=== PATIENT | female | born 1955 | race Caucasian/White ===

== ENCOUNTER 2017-05-27 20:06 | Emergency (ER) | payer BC, MEDICARE ==
[2017-05-27] MEDS ORDERED: Sodium Chloride 0.9% 1000 ML 1,000 ML IV STA ×2 (20:23→21:26)
[2017-05-27] MEDS ORDERED: Zofran 4 MG/2 ML VIAL IV ONE (20:23)
[2017-05-27] MEDS ORDERED: BENADRYL 50 MG/ML IV ONE (20:23)
[2017-05-27] MEDS ORDERED: Zofran 4 MG/2 ML VIAL ONE (20:32)
[2017-05-27] MEDS ORDERED: Sodium Chloride 0.9% 1000 ML 1,000 ML ONE ×2 (20:32→21:26)
[2017-05-27] MEDS ORDERED: BENADRYL 50 MG/ML ONE (20:32)
--- NOTE | 2017-05-27 20:36 | ERPHSYRPT ---
- History of Present Illness Time Seen by Provider: 05/27/17 20:35 Historian: patient, family Exam Limitations: no limitations Patient Subjective Stated Complaint: Allergic Reaction Triage Nursing Assessment: Pt began taking Cefdinir yesterday at 1700, woke up today nauseated. Pt states she has felt weak, nauseated and having abdominal discomfort. Pt states headache as well. Pt appears anxious at this time but cooperative with staff. Pulse ox 100% on room air, no hives noted. Physician History: Pt began taking Cefdinir yesterday at 1700, woke up today nauseated. Pt states she has felt weak, nauseated and having abdominal discomfort. Pt states headache as well. Timing/Duration: today Abdominal Pain Onset Location: generalized abdomen Associated Symptoms: nausea, vomiting, No rash, No shortness of breath Previous symptoms: no prior history Allergies/Adverse Reactions: tramadol [From Ultram] Allergy (Severe, Verified 03/20/16 07:06) Vomiting ciprofloxacin [From Cipro] Allergy (Verified 05/27/17 20:21) Penicillins Allergy (Verified 03/20/16 07:06) shellfish derived Allergy (Verified 05/27/17 20:21) Home Medications: Esomeprazole Magnesium [Nexium 24Hr] 22.3 mg PO DAILY 03/20/16 [History] Hydrocodone Bit/Acetaminophen [[place] 5-325 Tablet] 1 each PO Q6-8HPRN PRN [History] Hx Tetanus, Diphtheria Vaccination/Date Given: Yes Hx Influenza Vaccination/Date Given: Yes Hx Pneumococcal Vaccination/Date Given: Yes Immunizations Up to Date: Yes - Review of Systems Constitutional: No Fever, No Chills Eyes: No Symptoms Ears, Nose, & Throat: No Symptoms Respiratory: No Cough, No Dyspnea Cardiac: No Chest Pain, No Edema, No Syncope Abdominal/Gastrointestinal: Abdominal Pain, Nausea, Vomiting, No Diarrhea Genitourinary Symptoms: No Dysuria Musculoskeletal: No Back Pain, No Neck Pain Skin: No Rash Neurological: No Dizziness, No Focal Weakness, No Sensory Changes Psychological: No Symptoms Endocrine: No Symptoms All Other Systems: Reviewed and Negative - Past Medical History Pertinent Past Medical History: Yes Neurological History: No Pertinent History Cardiac History: Hypertension Respiratory History: No Pertinent History, Bronchitis Endocrine Medical History: No Pertinent History Musculoskeletal History: Degenerative Disk Disease, Osteoarthritis GI Medical History: GERD - Past Surgical History Past Surgical History: Yes Musculoskeletal: Orthopedic Surgery Other Surgical History: discectomy - Social History Smoking Status: Former smoker Exposure to second hand smoke: No Drug Use: none Patient Lives Alone: No - Female History Hx Now: No - Nursing Vital Signs Nursing Vital Signs: Initial Vital Signs Temperature 97.6 F 05/27/17 20:13 Pulse Rate 70 05/27/17 20:13 Respiratory Rate 20 05/27/17 20:13 Blood Pressure 159/74 05/27/17 20:13 O2 Sat by Pulse Oximetry 100 05/27/17 20:13 Pain Scale Pain Intensity 8 - Physical Exam General Appearance: moderate distress, alert Eye Exam: PERRL/EOMI, eyes nml inspection Ears, Nose, Throat Exam: normal ENT inspection, pharynx normal, moist mucous membranes Neck Exam: normal inspection, non-tender, supple, full range of motion Respiratory Exam: normal breath sounds, lungs clear, No respiratory distress Cardiovascular Exam: regular rate/rhythm, normal heart sounds Gastrointestinal/Abdomen Exam: soft, normal bowel sounds, No tenderness, No distention, No mass Pelvic Exam: not done Back Exam: normal inspection, normal range of motion, No CVA tenderness, No vertebral tenderness Extremity Exam: normal inspection, normal range of motion, pelvis stable Neurologic Exam: alert, oriented x 3, cooperative, normal mood/affect, nml cerebellar function, sensation nml, No motor deficits Skin Exam: normal color, warm, dry SpO2: 100 Oxygen Delivery: Room Air - Course Nursing assessment & vital signs reviewed: Yes Ordered Tests: Active Orders 24 hr Category Date Time Status AMYLASE Stat Lab 05/27/17 20:40 Completed CBC W DIFF Stat Lab 05/27/17 20:40 Completed CMP Stat Lab 05/27/17 20:40 Completed LIPASE Stat Lab 05/27/17 20:40 Completed Manual Differential NC Stat Lab 05/27/17 20:40 Completed Medication Summary Generic Name Dose Route Start Last Admin Trade Name Freq PRN Reason Stop Dose Admin Ceftriaxone Sodium/Dextrose 1 g in 50 mls @ 100 mls/hr 05/27/17 21:26 Rocephin 1 Gm-D5w 50 Ml Bag IV 05/27/17 21:55 STAT STA Sodium Chloride 1,000 mls @ 999 mls/hr 05/27/17 21:26 Sodium Chloride 0.9% 1000 Ml IV 05/27/17 22:26 .Q1H1M STA Discontinued Medications Generic Name Dose Route Start Last Admin Trade Name Bozena PRN Reason Stop Dose Admin Diphenhydramine HCl 25 mg 05/27/17 20:23 05/27/17 20:33 Benadryl 50 Mg/Ml IV 05/27/17 20:24 25 mg STAT ONE Administration Diphenhydramine HCl Confirm 05/27/17 20:32 Benadryl 50 Mg/Ml Administered 05/27/17 20:33 Dose 50 mg .ROUTE .STK-MED ONE Sodium Chloride 1,000 mls @ 999 mls/hr 05/27/17 20:23 05/27/17 20:33 Sodium Chloride 0.9% 1000 Ml IV 05/27/17 21:23 999 mls/hr .Q1H1M STA Administration Sodium Chloride Confirm 05/27/17 20:32 Sodium Chloride 0.9% 1000 Ml Administered 05/27/17 20:33 Dose 1,000 mls @ ud .ROUTE .STK-MED ONE Ondansetron HCl 4 mg 05/27/17 20:23 05/27/17 20:33 Zofran 4 Mg/2 Ml Vial IV 05/27/17 20:24 4 mg STAT ONE Administration Ondansetron HCl Confirm 05/27/17 20:32 Zofran 4 Mg/2 Ml Vial Administered 05/27/17 20:33 Dose 4 mg .ROUTE .STK-MED ONE Lab/Rad Data: Laboratory Result Diagrams 05/27/17 20:40 05/27/17 20:40 Laboratory Results 05/27/17 05/27/17 Range/Units 20:40 20:40 WBC 17.1 H (4.0-10.5) K/mm3 RBC 4.38 (4.1-5.4) M/mm3 Hgb 12.3 (12.0-16.0) gm/dl Hct 37.4 (35-47) % MCV 85.4 (78-100) fl MCH 28.1 (26-32) pg MCHC 32.9 (32-36) g/dl RDW 14.3 H (11.5-14.0) % Plt Count 326 (150-450) K/mm3 MPV 10.7 H (6-9.5) fl Sodium 129 L (136-145) mEq/L Potassium 3.6 (3.5-5.1) mEq/L Chloride 94 L (98-107) mEq/L Carbon Dioxide 20.4 L (21-32) mEq/L Anion Gap 18.0 H (5-15) MEQ/L BUN 11 (9-20) mg/dL Creatinine 0.95 (0.55-1.30) mg/dl Estimated GFR > 60 ML/MIN Glucose 146 H (70-110) MG/DL Calcium 9.3 (8.5-10.1) mg/dL Total Bilirubin 0.40 (0.2-1.0) mg/dL AST 16 (15-37) U/L ALT 22 (12-78) U/L Alkaline Phosphatase 125 H (46-116) U/L Serum Total Protein 7.8 (6.4-8.2) gm/dL Albumin 4.2 (3.4-5.0) g/dL Amylase 68 (25-115) U/L Lipase 167 (73-393) U/L - Progress Progress: improved Counseled pt/family regarding: lab results, diagnosis, need for follow-up - Departure Time of Disposition: 21:27 Departure Disposition: Home Clinical Impression: Gastroenteritis Sinusitis, acute Qualifiers: Sinusitis location: maxillary Recurrence: not specified as recurrent Qualified Code(s): J01.00 - Acute maxillary sinusitis, unspecified Condition: Stable Critical Care Time: No Referrals: MUSTAPHA NIETO DO [Primary Care Provider] - Instructions: Adverse Drug Reaction -- Allergic, Sinusitis Additional Instructions: VOMITING AND DIARRHEA 1. Take only small amounts of clear, cool liquids at frequent intervals as tolerated for the next 24-48 hours. Avoid milk products and orange juice. Clear liquids are those liquids which you can see through. 2. Pedialyte and popsicles are recommended clear liquids. 3. If the condition worsens you should contact your family physician or return to the emergency department for re-evaluation. Prescriptions: Smz/Tmp Ds Tablet [Bactrim Ds Tablet] 1 udtab PO BID #20 tablet
[2017-05-27 20:55] LABS: Granulocyte Absolute (ANC) 12.82 (1.4-6.9); Hematocrit 37.4 % (35-47); Hemoglobin 12.3 gm/dl (12.0-16.0); Mean Cell Volume 85.4 fl (78-100); Mean Corpuscular Hemoglobin 28.1 pg (26-32); Mean Corpuscular Hgb Concent. 32.9 g/dl (32-36); Mean Platelet Volume 10.7 fl (6-9.5); Platelet Count 326 K/mm3 (150-450); Red Blood Count 4.38 M/mm3 (4.1-5.4); Red Cell Distribution Width 14.3 % (11.5-14.0); White Blood Count 17.1 K/mm3 (4.0-10.5)
[2017-05-27 21:16] LABS: ALBUMIN 4.2 g/dL (3.4-5.0); ALKALINE PHOSPHATASE 125 U/L (46-116); AMYLASE 68 U/L (25-115); BLOOD UREA NITROGEN 11 mg/dL (9-20); CHLORIDE 94 mEq/L (98-107); Calcium 9.3 mg/dL (8.5-10.1); Carbon Dioxide 20.4 mEq/L (21-32); Creatinine 1 0.95 mg/dl (0.55-1.30); EST GLOMERULAR FILTRATION RATE > 60 ML/MIN; Glucose 146 MG/DL (70-110); LIPASE 167 U/L (73-393); Potassium 3.6 mEq/L (3.5-5.1); SGOT/AST 16 U/L (15-37); SGPT/ALT 22 U/L (12-78); SODIUM 129 mEq/L (136-145); Total Protein 7.8 gm/dL (6.4-8.2)
[2017-05-27] MEDS ORDERED: ROCEPHIN 1 Gm-D5w 50 ml Bag** 1 G/50 ML IVPB IV ONE (21:26)
[2017-05-27] MEDS ORDERED: ROCEPHIN 1 Gm-D5w 50 ml Bag** 1 G/50 ML IVPB IV STA (21:26)
[2017-05-27 22:13] VITALS: BP 153/61; PULSE 86; O2SAT 99
[2017-05-28 00:40] LABS: Eosinophil 1 % (0.00-3.0); Lymphocytes 14 % (24-44); Monocyte 12 % (0.0-12.0); Neutrophils 73 % (36.0-66.0); Platelet Estimate NORMAL (NORMAL); Total Cells Counted 100
== END 2017-05-27 22:17 | disposition home or self-care (01) ==
LOC: ED 20:06
DX: K52.9 Noninfective gastroenteritis and colitis, unspecified (principal); J01.00 Acute maxillary sinusitis, unspecified
CPT/HCPCS: 36415; 80053; 82150; 83690; 85025; 96360; 96361; 99284; J0696; J1200; J2405

== ENCOUNTER 2019-11-30 17:18 | Emergency (ER) | payer BC, MEDICARE ==
[2019-11-30] MEDS ORDERED: Sodium Chloride 0.9% 1000 ML 1,000 ML IV STA (18:02)
[2019-11-30 18:10] LABS: Hematocrit 24.1 % (35-47); Hemoglobin 8.2 gm/dl (12.0-16.0); Mean Cell Volume 99.2 fl (78-100); Mean Corpuscular Hemoglobin 33.7 pg (26-32); Platelet Count 151 K/mm3 (150-450); Red Blood Count 2.43 M/mm3 (4.1-5.4); Red Cell Distribution Width 22.3 % (11.5-14.0)
[2019-11-30 18:16] LABS: INR 1.33 (0.8-3.0); PROTIME 15.1 SECONDS (9.95-12.35)
[2019-11-30 18:19] LABS: PTT 31.9 SECONDS (25.3-37.0)
[2019-11-30 18:20] LABS: ALBUMIN 4.3 g/dL (3.5-5.0); ALKALINE PHOSPHATASE 105 U/L (38-126); ANION GAP 13.7 MEQ/L (5-15); BLOOD UREA NITROGEN 10 mg/dL (7-17); CHLORIDE 103 mmol/L (98-107); Calcium 9.4 mg/dL (8.4-10.2); Carbon Dioxide 23 mmol/L (22-30); Glucose 107 mg/dL (74-106); LIPASE 107 U/L (23-300); MAGNESIUM 2.1 mg/dL (1.6-2.3); Potassium 3.7 mmol/L (3.5-5.1); SGOT/AST 70 U/L (14-36); SGPT/ALT 24 U/L (0-35); SODIUM 136 mmol/L (137-145)
[2019-11-30 18:21] LABS: White Blood Count 350.6 K/mm3 (4.0-10.5)
[2019-11-30 18:48] LABS: BAND 32 % (0.0-2.0); Basophil 2 % (0.0-1.0); Eosinophil 2 % (0.00-3.0); Lymphocytes 1 % (24-44); Metamyelocyte 36 %; Neutrophils 9 % (36.0-66.0); Nucleated Red Blood Cell 1 %; Promyelocyte 14 %; Total Cells Counted 100
[2019-11-30 18:49] LABS: Platelet Estimate NORMAL (NORMAL)
[2019-11-30 18:50] LABS: Polychromasia 1+
--- NOTE | 2019-11-30 18:50 | ERPHSYRPT ---
- History of Present Illness Time Seen by Provider: 11/30/19 17:34 Source: patient Exam Limitations: no limitations Patient Subjective Stated Complaint: pt here for weekness for about 3 weeks getting worse, she was seen 2 weeks and sent to get labs and she states her plt and hgb was low, and is sending her to a blood specialist this monday, urine is orange color,no bloody stool Triage Nursing Assessment: pt alert, arrived per wc, resp easy.skin w/d/pale, has bruising to abd and legs with no injury, has had sweating but no fever Physician History: 64 years old female with history of chronic back pain who presented in the ER with chief complaint of generalized weakness fatigue for the last 3 weeks which is progressively worsening lately. Patient reports evaluation already had at primary care office last week with blood work done which showed anemia with a hemoglobin of 8 and is currently on iron pills. Patient reports she feels weak tired with no energy all the time and gets out of breath with minimal activity. She is also having night sweats with almost 10 pound weight loss in the last few weeks. Denies any abdominal pain nausea or vomiting but has some tender spots in the groin. Denies any history of ulcers or dark-colored stool until she started taking iron pills lately. Timing/Duration: week(s) (3) Severity: moderate Modifying Factors: Improves With: movement, rest Associated Symptoms: shortness of breath, loss of appetite, malaise, weakness, No abdominal pain Allergies/Adverse Reactions: tramadol [From Ultram] Allergy (Severe, Verified 03/20/16 07:06) Vomiting ciprofloxacin [From Cipro] Allergy (Verified 05/27/17 20:21) gabapentin Allergy (Verified 11/30/19 17:36) meperidine [From Demerol] Allergy (Verified 11/30/19 17:36) Penicillins Allergy (Verified 03/20/16 07:06) shellfish derived Allergy (Verified 05/27/17 20:21) cbd Allergy (Uncoded 11/30/19 17:36) Home Medications: Hydrocodone Bit/Acetaminophen [[place] 5-325 Tablet] 1 each PO Q6-8HPRN PRN 03/20/16 [History] Citalopram Hydrobromide 20 mg* [ceLEXa 20 MG] 1 ea DAILY 11/30/19 [History] Cyclobenzaprine HCl 10 mg [Cyclobenzaprine 10 MG] 1 ea DAILY 11/30/19 [History] Lidocaine HCl 5% Patch [Lidoderm Patch 5%] 1 ea DAILY 11/30/19 [History] Meloxicam [Mobic] 1 ea DAILY 11/30/19 [History] Omeprazole Magnesium [Prilosec Otc] 40 mg DAILY 11/30/19 [History] Hx Tetanus, Diphtheria Vaccination/Date Given: Yes Hx Influenza Vaccination/Date Given: Yes Hx Pneumococcal Vaccination/Date Given: Yes Immunizations Up to Date: Yes Travel Risk - International Travel Have you traveled outside of the country in past 3 weeks: No - Coronavirus Screening Are you exhibiting any of the following symptoms?: No Close contact with a COVID-19 positive Pt in past 14-21 Days: No - Review of Systems Constitutional: Fatigue, Malaise, Night Sweats, Weakness, Weight Loss Eyes: No Symptoms Ears, Nose, & Throat: Sinus Drainage Respiratory: Dyspnea, Dyspnea on Exertion (CRONIN) Cardiac: Palpitations Abdominal/Gastrointestinal: No Symptoms Genitourinary Symptoms: No Symptoms Musculoskeletal: Back Pain, Myalgias Skin: Rash Neurological: No Symptoms Psychological: No Symptoms Hematologic/Lymphatic: Anemia, Easy Bleeding Immunological/Allergic: No Symptoms - Past Medical History Pertinent Past Medical History: Yes Neurological History: No Pertinent History Cardiac History: Hypertension Respiratory History: No Pertinent History, Bronchitis Endocrine Medical History: No Pertinent History Musculoskeletal History: Degenerative Disk Disease, Osteoarthritis GI Medical History: GERD Other Medical History: low ptl and hgb levels recently - Past Surgical History Past Surgical History: Yes Musculoskeletal: Orthopedic Surgery Other Surgical History: discectomy - Social History Smoking Status: Never smoker Exposure to second hand smoke: No Drug Use: none Patient Lives Alone: No - Female History Hx Last Menstrual Period: psot Hx Now: No - Nursing Vital Signs Nursing Vital Signs: Initial Vital Signs Temperature 98.5 F 11/30/19 17:22 Pulse Rate 93 H 11/30/19 17:22 Respiratory Rate 18 11/30/19 17:22 Blood Pressure 175/85 11/30/19 17:22 O2 Sat by Pulse Oximetry 99 11/30/19 17:22 Pain Scale Pain Intensity 0 - Physical Exam General Appearance: no apparent distress, alert, anxiety Eye Exam: PERRL/EOMI, eyes nml inspection Ears, Nose, Throat Exam: normal ENT inspection, TMs normal, pharyngeal erythema Neck Exam: normal inspection, non-tender, supple, full range of motion Respiratory Exam: normal breath sounds, lungs clear Cardiovascular Exam: regular rate/rhythm, normal heart sounds Back Exam: normal inspection, No CVA tenderness Extremity Exam: normal range of motion, pelvis stable, other (Multiple bruises. Soft to form swelling right upper lateral thigh 1 x 2 cm.) Neurologic Exam: alert, oriented x 3, cooperative, appliance servicer II-XII nml as tested, normal mood/affect, nml cerebellar function, sensation nml Skin Exam: normal color, petechiae Lymphatic Exam: adenopathy SpO2 Interpretation: normal SpO2: 99 O2 Delivery: Room Air Ordered Tests: Active Orders 24 hr Category Date Time Status EKG-ER Only STAT Care 11/30/19 18:02 Active IV Insertion STAT Care 11/30/19 18:02 Active CHEST 1 VIEW (PORTABLE) Stat Exams 11/30/19 18:03 Taken CBC W DIFF Stat Lab 11/30/19 18:06 Results CMP Stat Lab 11/30/19 18:06 Completed LIPASE Stat Lab 11/30/19 18:06 Completed Lactic Acid Stat Lab 11/30/19 18:08 Completed Lactic Acid Stat Lab 11/30/19 20:14 Received MAGNESIUM Stat Lab 11/30/19 18:06 Completed Manual Differential NC Stat Lab 11/30/19 18:06 Results Occult Blood, Other Screening Stat Lab 11/30/19 18:02 Uncollected PROTIME WITH INR Stat Lab 11/30/19 18:06 Completed PTT Stat Lab 11/30/19 18:06 Completed Pathologist Review Stat Lab 11/30/19 18:06 Results TROPONIN Q3H Lab 11/30/19 18:08 Completed TROPONIN Q3H Lab 11/30/19 21:15 Ordered TROPONIN Q3H Lab 12/01/19 00:15 Ordered TROPONIN Q3H Lab 12/01/19 03:15 Ordered TROPONIN Q3H Lab 12/01/19 06:15 Ordered TSH [TSH, 3RD Generation] Stat Lab 11/30/19 18:06 Completed UA W/RFX UR CULTURE Stat Lab 11/30/19 19:37 Completed Medication Summary Discontinued Medications Generic Name Dose Route Start Last Admin Trade Name Freq PRN Reason Stop Dose Admin Sodium Chloride 1,000 mls @ 999 mls/hr 11/30/19 18:02 11/30/19 19:50 Sodium Chloride 0.9% 1000 Ml IV 11/30/19 19:02 999 mls/hr .Q1H1M STA Administration Sodium Chloride Confirm 11/30/19 19:22 Sodium Chloride 0.9% 1000 Ml Administered 11/30/19 19:23 Dose 1,000 mls @ ud .ROUTE .STK-MED ONE Lorazepam 1 mg 11/30/19 19:47 11/30/19 19:51 Ativan 1 Mg PO 11/30/19 19:48 1 mg STAT ONE Administration Lorazepam Confirm 11/30/19 19:49 Ativan 1 Mg Administered 11/30/19 19:50 Dose 1 mg .ROUTE .STK-MED ONE Ondansetron HCl 4 mg 11/30/19 20:01 11/30/19 20:07 Zofran 4 Mg/2 Ml Vial IV 11/30/19 20:02 4 mg STAT ONE Administration Ondansetron HCl Confirm 11/30/19 20:07 Zofran 4 Mg/2 Ml Vial Administered 11/30/19 20:08 Dose 4 mg .ROUTE .STK-MED ONE Lab/Rad Data: Laboratory Result Diagrams 11/30/19 18:06 11/30/19 18:06 Laboratory Results 11/30/19 11/30/19 11/30/19 Range/Units 19:37 18:08 18:08 WBC (4.0-10.5) K/mm3 RBC (4.1-5.4) M/mm3 Hgb (12.0-16.0) gm/dl Hct (35-47) % MCV (78-100) fl MCH (26-32) pg MCHC (32-36) g/dl RDW (11.5-14.0) % Plt Count (150-450) K/mm3 MPV (7.5-11.0) fl Segmented Neutrophils (36.0-66.0) % Band Neutrophils (0.0-2.0) % Lymphocytes (Manual) (24-44) % Eosinophils (Manual) (0.00-3.0) % Basophils (Manual) (0.0-1.0) % Metamyelocytes % Promyelocytes % Nucleated RBCs % Blast Cells % Platelet Estimate (NORMAL) RBC Morphology Polychromasia Basophilic Stippling Smear Path Review PT (9.95-12.35) SECONDS INR (0.8-3.0) APTT (25.3-37.0) SECONDS Sodium (137-145) mmol/L Potassium (3.5-5.1) mmol/L Chloride (98-107) mmol/L Carbon Dioxide (22-30) mmol/L Anion Gap (5-15) MEQ/L BUN (7-17) mg/dL Creatinine (0.52-1.04) mg/dL Estimated GFR ML/MIN Glucose (74-106) mg/dL Lactic Acid 2.0 (0.4-2.0) Calcium (8.4-10.2) mg/dL Magnesium (1.6-2.3) mg/dL Total Bilirubin (0.2-1.3) mg/dL AST (14-36) U/L ALT (0-35) U/L Alkaline Phosphatase (38-126) U/L Troponin I < 0.012 (0.000-0.034) ng/mL Serum Total Protein (6.3-8.2) g/dL Albumin (3.5-5.0) g/dL Lipase (23-300) U/L TSH 3rd Generation (0.47-4.68) mIU/L Urine Color YELLOW (YELLOW) Urine Appearance SLIGHTLY CLOUDY (CLEAR) Urine pH 6.0 (5-6) Ur Specific [place] 1.004 (1.005-1.025) Urine Protein NEGATIVE (Negative) Urine Ketones NEGATIVE (NEGATIVE) Urine Blood NEGATIVE (0-5) Jono/ul Urine Nitrite NEGATIVE (NEGATIVE) Urine Bilirubin NEGATIVE (NEGATIVE) Urine Urobilinogen NEGATIVE (0-1) mg/dL Ur Leukocyte Esterase NEGATIVE (NEGATIVE) Urine WBC (Auto) NONE (0-5) /HPF Urine RBC (Auto) NONE (0-2) /HPF U Epithel Cells (Auto) NONE (FEW) /HPF Urine Bacteria (Auto) NONE SEEN (NEGATIVE) /HPF Urine Mucus (Auto) SLIGHT (NEGATIVE) /HPF Urine Culture Reflexed NO (NO) Urine Glucose NEGATIVE (NEGATIVE) mg/dL 11/30/19 11/30/19 11/30/19 Range/Units 18:06 18:06 18:06 WBC 350.6 H* (4.0-10.5) K/mm3 RBC 2.43 L (4.1-5.4) M/mm3 Hgb 8.2 L (12.0-16.0) gm/dl Hct 24.1 L (35-47) % MCV 99.2 (78-100) fl MCH 33.7 H (26-32) pg MCHC 34.0 (32-36) g/dl RDW 22.3 H (11.5-14.0) % Plt Count 151 (150-450) K/mm3 MPV 10.0 (7.5-11.0) fl Segmented Neutrophils 9 L (36.0-66.0) % Band Neutrophils 32 H (0.0-2.0) % Lymphocytes (Manual) 1 L (24-44) % Eosinophils (Manual) 2 (0.00-3.0) % Basophils (Manual) 2 H (0.0-1.0) % Metamyelocytes 36 % Promyelocytes 14 % Nucleated RBCs 1 % Blast Cells 4 % Platelet Estimate NORMAL (NORMAL) RBC Morphology ABNORMAL Polychromasia 1+ Basophilic Stippling 1+ Smear Path Review Pending PT 15.1 H (9.95-12.35) SECONDS INR 1.33 (0.8-3.0) APTT 31.9 (25.3-37.0) SECONDS Sodium (137-145) mmol/L Potassium (3.5-5.1) mmol/L Chloride (98-107) mmol/L Carbon Dioxide (22-30) mmol/L Anion Gap (5-15) MEQ/L BUN (7-17) mg/dL Creatinine (0.52-1.04) mg/dL Estimated GFR ML/MIN Glucose (74-106) mg/dL Lactic Acid (0.4-2.0) Calcium (8.4-10.2) mg/dL Magnesium (1.6-2.3) mg/dL Total Bilirubin (0.2-1.3) mg/dL AST (14-36) U/L ALT (0-35) U/L Alkaline Phosphatase (38-126) U/L Troponin I (0.000-0.034) ng/mL Serum Total Protein (6.3-8.2) g/dL Albumin (3.5-5.0) g/dL Lipase (23-300) U/L TSH 3rd Generation 3.310 (0.47-4.68) mIU/L Urine Color (YELLOW) Urine Appearance (CLEAR) Urine pH (5-6) Ur Specific [place] (1.005-1.025) Urine Protein (Negative) Urine Ketones (NEGATIVE) Urine Blood (0-5) Jono/ul Urine Nitrite (NEGATIVE) Urine Bilirubin (NEGATIVE) Urine Urobilinogen (0-1) mg/dL Ur Leukocyte Esterase (NEGATIVE) Urine WBC (Auto) (0-5) /HPF Urine RBC (Auto) (0-2) /HPF U Epithel Cells (Auto) (FEW) /HPF Urine Bacteria (Auto) (NEGATIVE) /HPF Urine Mucus (Auto) (NEGATIVE) /HPF Urine Culture Reflexed (NO) Urine Glucose (NEGATIVE) mg/dL 11/30/19 Range/Units 18:06 WBC (4.0-10.5) K/mm3 RBC (4.1-5.4) M/mm3 Hgb (12.0-16.0) gm/dl Hct (35-47) % MCV (78-100) fl MCH (26-32) pg MCHC (32-36) g/dl RDW (11.5-14.0) % Plt Count (150-450) K/mm3 MPV (7.5-11.0) fl Segmented Neutrophils (36.0-66.0) % Band Neutrophils (0.0-2.0) % Lymphocytes (Manual) (24-44) % Eosinophils (Manual) (0.00-3.0) % Basophils (Manual) (0.0-1.0) % Metamyelocytes % Promyelocytes % Nucleated RBCs % Blast Cells % Platelet Estimate (NORMAL) RBC Morphology Polychromasia Basophilic Stippling Smear Path Review PT (9.95-12.35) SECONDS INR (0.8-3.0) APTT (25.3-37.0) SECONDS Sodium 136 L (137-145) mmol/L Potassium 3.7 (3.5-5.1) mmol/L Chloride 103 (98-107) mmol/L Carbon Dioxide 23 (22-30) mmol/L Anion Gap 13.7 (5-15) MEQ/L BUN 10 (7-17) mg/dL Creatinine 0.80 (0.52-1.04) mg/dL Estimated GFR > 60.0 ML/MIN Glucose 107 H (74-106) mg/dL Lactic Acid (0.4-2.0) Calcium 9.4 (8.4-10.2) mg/dL Magnesium 2.1 (1.6-2.3) mg/dL Total Bilirubin 0.50 (0.2-1.3) mg/dL AST 70 H (14-36) U/L ALT 24 (0-35) U/L Alkaline Phosphatase 105 (38-126) U/L Troponin I (0.000-0.034) ng/mL Serum Total Protein 7.0 (6.3-8.2) g/dL Albumin 4.3 (3.5-5.0) g/dL Lipase 107 (23-300) U/L TSH 3rd Generation (0.47-4.68) mIU/L Urine Color (YELLOW) Urine Appearance (CLEAR) Urine pH (5-6) Ur Specific [place] (1.005-1.025) Urine Protein (Negative) Urine Ketones (NEGATIVE) Urine Blood (0-5) Jono/ul Urine Nitrite (NEGATIVE) Urine Bilirubin (NEGATIVE) Urine Urobilinogen (0-1) mg/dL Ur Leukocyte Esterase (NEGATIVE) Urine WBC (Auto) (0-5) /HPF Urine RBC (Auto) (0-2) /HPF U Epithel Cells (Auto) (FEW) /HPF Urine Bacteria (Auto) (NEGATIVE) /HPF Urine Mucus (Auto) (NEGATIVE) /HPF Urine Culture Reflexed (NO) Urine Glucose (NEGATIVE) mg/dL - Progress Progress: improved, re-examined Progress Note: 11/30/19 20:58 64 years old is evaluated for generalized weakness fatigue, night sweats and weight loss along with progressive dyspnea. She is given a fluid bolus, work-up showed hemoglobin 8.2 but has white count of 350 K with platelets of 151 and differential pointing towards CML. She is not having fever, chest x-ray did not show any focal consolidations. She is not in any distress but very anxious. Chemistries grossly unremarkable. I have discussed with Dr. Booth at [facility] matology oncology, reviewed labs, patient presentation, recommended outpatient follow-up for further evaluation. Do not think patient needs inpatient admission for work-up as long as she is not having any signs symptoms of infection anywhere. I have discussed with patient labs and plan of follow-up outpatient which he understand and agrees. She is given Ativan for anxiety and is much more relaxed on reevaluation. Addi signs symptoms of worsening needing return to ER which he seems understanding. Counseled pt/family regarding: lab results, diagnosis, need for follow-up, rad results - Departure Departure Disposition: Home Clinical Impression: General weakness Leukemia Qualifiers: Leukemia type: unspecified Leukemia Active/Remission status: without remission Qualified Code(s): C95.90 - Leukemia, unspecified not having achieved remission Condition: Stable Critical Care Time: No Referrals: MUSTAPHA NIETO, DO [Primary Care Provider] - Follow Up with PCP/3 days Instructions: Leukemia in Adults Additional Instructions: Follow-up with hematology oncology Dr. Molly Booth at [facility]. Call for appointment early Monday morning. Phone number. [phone]. Avoid any sick contact. Take Tylenol as needed. Return to ER for worsening or if develop fever chills etc.
[2019-11-30 18:52] LABS: Basophilic Stippling 1+
[2019-11-30] MEDS ORDERED: Sodium Chloride 0.9% 1000 ML 1,000 ML ONE (19:22)
[2019-11-30 19:43] LABS: Appearance SLIGHTLY CLOUDY (CLEAR); Bacteria NONE SEEN /HPF (NEGATIVE); Bilirubin NEGATIVE (NEGATIVE); Blood NEGATIVE Ery/ul (0-5); Glucose NEGATIVE (NEGATIVE); Ketones NEGATIVE (NEGATIVE); Leukocyte Esterase NEGATIVE (NEGATIVE); Mucus SLIGHT /HPF (NEGATIVE); Nitrite NEGATIVE (NEGATIVE); Protein,Urine Dip NEGATIVE (Negative); Specific Gravity 1.004 (1.005-1.025); Urobilinogen NEGATIVE mg/dL (0-1)
[2019-11-30] MEDS ORDERED: Ativan 1 MG PO ONE (19:47)
[2019-11-30] MEDS ORDERED: Ativan 1 MG ONE (19:49)
[2019-11-30] MEDS ORDERED: Zofran 4 MG/2 ML VIAL IV ONE (20:01)
[2019-11-30] MEDS ORDERED: Zofran 4 MG/2 ML VIAL ONE (20:07)
[2019-11-30 21:10] VITALS: BP 149/68; PULSE 82
[2019-11-30 21:15] VITALS: O2SAT 98
--- NOTE | 2019-11-30 22:28 | XRAY ---
Indication: Weakness. Comparison: March 20, 2016. Portable chest again demonstrates normal heart and lungs with incidental left base calcified granuloma. Enlarging large hiatal hernia. Bony thorax intact.
== END 2019-11-30 21:19 ==
LOC: ED 17:18
DX: R53.1 Weakness (principal); C95.90 Leukemia, unspecified not having achieved remission; Z79.899 Other long term (current) drug therapy
CPT/HCPCS: 36000; 36415; 71045; 80053; 81001; 83605; 83690; 83735; 84443; 84484; 85025; 85610; 85730; 93005; 96360; 96374; 99284; J2405; A9270-GY

== ENCOUNTER 2019-12-25 16:10 | Emergency (ER) | payer BC, MEDICARE ==
[2019-12-25] MEDS ORDERED: Zofran 4 MG/2 ML VIAL ONE (16:35)
[2019-12-25] MEDS ORDERED: Sodium Chloride 0.9% 1000 ML 1,000 ML ONE (16:36)
[2019-12-25] MEDS ORDERED: MORPHINE SULFATE 4 MG INJ ONE ×2 (16:36→17:23)
[2019-12-25] MEDS: Sodium Chloride 0.9% 1000 ML 1,000 ML IV STA (16:37)
[2019-12-25 16:39] LABS: Hematocrit 33.7 % (35-47); Hemoglobin 10.3 gm/dl (12.0-16.0); Mean Cell Volume 103.4 fl (78-100); Mean Corpuscular Hemoglobin 31.6 pg (26-32); Mean Corpuscular Hgb Concent. 30.6 g/dl (32-36); Mean Platelet Volume 9.5 fl (7.5-11.0); Platelet Count 189 K/mm3 (150-450); Red Blood Count 3.26 M/mm3 (4.1-5.4)
[2019-12-25] MEDS: Zofran 4 MG/2 ML VIAL IV ONE (16:39)
[2019-12-25] MEDS: MORPHINE SULFATE 4 MG INJ IV ONE ×2 (16:40→17:26)
[2019-12-25 16:46] LABS: White Blood Count 100.1 K/mm3 (4.0-10.5)
[2019-12-25 17:11] LABS: ALBUMIN 4.7 g/dL (3.5-5.0); ALKALINE PHOSPHATASE 162 U/L (38-126); ANION GAP 13.6 MEQ/L (5-15); BLOOD UREA NITROGEN 9 mg/dL (7-17); CHLORIDE 100 mmol/L (98-107); Calcium 9.4 mg/dL (8.4-10.2); Carbon Dioxide 24 mmol/L (22-30); Glucose 120 mg/dL (74-106); Potassium 4.6 mmol/L (3.5-5.1); SGOT/AST 90 U/L (14-36); SGPT/ALT 18 U/L (0-35); SODIUM 133 mmol/L (137-145); Total Protein 7.7 g/dL (6.3-8.2)
[2019-12-25 17:13] VITALS: PULSE 72; O2SAT 98
--- NOTE | 2019-12-25 17:17 | ERPHSYRPT ---
- History of Present Illness Time Seen by Provider: 12/25/19 16:24 Source: patient Exam Limitations: no limitations Patient Subjective Stated Complaint: Pt states "My right leg is killing me. It has hurt for two days." Triage Nursing Assessment: Pt presented alert and oriented X 3, skin pwd Pt able to speak in clear full sentences pt in no appaent respiratory distress. pt moaning and crying. Pt speaking rapidly. 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 Patient described this as a sharp shooting pain moderate to severe intensity, aggravated with movements palpation, no significant relieving factors. Denies any associated swelling redness, fall or trauma. Denies any hip pain or difficulty movements of hip. She has a chronic back pain but this pain is different than her routine back pain and is no radiation from the back. She denies any cold clammy right lower extremity or pale discoloration. Patient does have history of enlarged lymph node in the groin and was seen last month for similar symptoms. No history of blood clots, not taking any hormonal pills. No chest pain palpitations or shortness of breath. Allergies/Adverse Reactions: tramadol [From Ultram] Allergy (Severe, Verified 03/20/16 07:06) Vomiting ciprofloxacin [From Cipro] Allergy (Verified 05/27/17 20:21) gabapentin Allergy (Verified 11/30/19 17:36) meperidine [From Demerol] Allergy (Verified 11/30/19 17:36) Penicillins Allergy (Verified 03/20/16 07:06) shellfish derived Allergy (Verified 05/27/17 20:21) cbd Allergy (Uncoded 11/30/19 17:36) Home Medications: Hydrocodone Bit/Acetaminophen [[place] 5-325 Tablet] 1 each PO Q6-8HPRN PRN 03/20/16 [History] Citalopram Hydrobromide 20 mg* [ceLEXa 20 MG] 1 ea DAILY 11/30/19 [History] Cyclobenzaprine HCl 10 mg [Cyclobenzaprine 10 MG] 1 ea DAILY 11/30/19 [History] Lidocaine HCl 5% Patch [Lidoderm Patch 5%] 1 ea DAILY 11/30/19 [History] Meloxicam [Mobic] 1 ea DAILY 11/30/19 [History] Omeprazole Magnesium [Prilosec Otc] 40 mg DAILY 11/30/19 [History] Hx Tetanus, Diphtheria Vaccination/Date Given: Yes Hx Influenza Vaccination/Date Given: No Hx Pneumococcal Vaccination/Date Given: No Immunizations Up to Date: Yes Travel Risk - International Travel Have you traveled outside of the country in past 3 weeks: No - Coronavirus Screening Close contact with a COVID-19 positive Pt in past 14-21 Days: No - Review of Systems Constitutional: No Symptoms Eyes: No Symptoms Ears, Nose, & Throat: No Symptoms Respiratory: No Symptoms Cardiac: No Symptoms Abdominal/Gastrointestinal: No Symptoms Genitourinary Symptoms: No Symptoms Musculoskeletal: Myalgias Skin: No Symptoms Neurological: No Symptoms Psychological: No Symptoms Endocrine: No Symptoms Hematologic/Lymphatic: No Symptoms Immunological/Allergic: No Symptoms - Past Medical History Pertinent Past Medical History: Yes Neurological History: No Pertinent History Cardiac History: Hypertension Respiratory History: No Pertinent History, Bronchitis Endocrine Medical History: No Pertinent History Musculoskeletal History: Degenerative Disk Disease, Osteoarthritis GI Medical History: GERD Other Medical History: low ptl and hgb levels recently - Past Surgical History Past Surgical History: Yes Musculoskeletal: Orthopedic Surgery Other Surgical History: discectomy - Social History Smoking Status: Former smoker Exposure to second hand smoke: No Drug Use: none Patient Lives Alone: No - Female History Hx Now: No - Nursing Vital Signs Nursing Vital Signs: Initial Vital Signs Temperature 98.1 F 12/25/19 16:24 Pulse Rate 76 12/25/19 16:24 Respiratory Rate 24 12/25/19 16:24 Blood Pressure 152/68 12/25/19 16:24 O2 Sat by Pulse Oximetry 100 12/25/19 16:24 Pain Scale Pain Intensity 4 - Physical Exam General Appearance: no apparent distress, alert Eyes, Ears, Nose, Throat Exam: normal ENT inspection Neck Exam: normal inspection, non-tender Cardiovascular/Respiratory Exam: normal breath sounds, regular rate/rhythm Gastrointestinal/Abdominal Exam: non-tender, soft Back Exam: normal inspection Hips Exam: right: soft tissue tenderness, bilateral: non-tender, normal inspection, normal range of motion, no evidence of injury, bone tenderness Legs Exam: right leg: soft tissue tenderness, left leg: non-tender, bilateral leg: normal inspection, normal range of motion, no evidence of injury Knees Exam: bilateral knee: non-tender, normal inspection, normal range of motion, no evidence of injury Neuro/Tendon Exam: normal sensation, normal motor functions, normal tendon functions, no evidence tendon injury Mental Status Exam: alert, oriented x 3, cooperative Skin Exam: normal color, warm, dry SpO2 Interpretation: normal SpO2: 98 O2 Delivery: Room Air Ordered Tests: Active Orders 24 hr Category Date Time Status IV Insertion STAT Care 12/25/19 16:30 Completed VENOUS UNILAT/LIMITED EXTREMIT [US] Stat Exams 12/25/19 16:32 Taken CBC W DIFF Stat Lab 12/25/19 16:20 Completed CK (IN-HOUSE) [CK-Creatinine Phosphokinase] Stat Lab 12/25/19 Completed CMP Stat Lab 12/25/19 16:20 Completed Manual Differential NC Stat Lab 12/25/19 16:20 Completed UA W/RFX UR CULTURE Stat Lab 12/25/19 18:30 Completed Medication Summary Discontinued Medications Generic Name Dose Route Start Last Admin Trade Name Bozena PRN Reason Stop Dose Admin Sodium Chloride 1,000 mls @ 999 mls/hr 12/25/19 16:30 12/25/19 17:41 Sodium Chloride 0.9% 1000 Ml IV 12/25/19 17:30 Infused .Q1H1M STA Infusion Sodium Chloride Confirm 12/25/19 16:36 Sodium Chloride 0.9% 1000 Ml Administered 12/25/19 16:37 Dose 1,000 mls @ ud .ROUTE .STK-MED ONE Morphine Sulfate 4 mg 12/25/19 16:30 12/25/19 16:40 Morphine Sulfate 4 Mg Inj IV 12/25/19 16:31 4 mg STAT ONE Administration Morphine Sulfate Confirm 12/25/19 16:36 Morphine Sulfate 4 Mg Inj Administered 12/25/19 16:37 Dose 4 mg .ROUTE .STK-MED ONE Morphine Sulfate 4 mg 12/25/19 17:13 12/25/19 17:26 Morphine Sulfate 4 Mg Inj IV 12/25/19 17:14 4 mg STAT ONE Administration Morphine Sulfate Confirm 12/25/19 17:23 Morphine Sulfate 4 Mg Inj Administered 12/25/19 17:24 Dose 4 mg .ROUTE .STK-MED ONE Ondansetron HCl 4 mg 12/25/19 16:30 12/25/19 16:39 Zofran 4 Mg/2 Ml Vial IV 12/25/19 16:31 4 mg STAT ONE Administration Ondansetron HCl Confirm 12/25/19 16:35 Zofran 4 Mg/2 Ml Vial Administered 12/25/19 16:36 Dose 4 mg .ROUTE .STK-MED ONE Lab/Rad Data: Laboratory Result Diagrams 12/25/19 16:20 12/25/19 16:20 Laboratory Results 12/25/19 12/25/19 12/25/19 Range/Units Unknown 18:30 16:20 WBC (4.0-10.5) K/mm3 RBC (4.1-5.4) M/mm3 Hgb (12.0-16.0) gm/dl Hct (35-47) % MCV (78-100) fl MCH (26-32) pg MCHC (32-36) g/dl RDW (11.5-14.0) % Plt Count (150-450) K/mm3 MPV (7.5-11.0) fl Segmented Neutrophils (36.0-66.0) % Band Neutrophils (0.0-2.0) % Lymphocytes (Manual) (24-44) % Eosinophils (Manual) (0.00-3.0) % Basophils (Manual) (0.0-1.0) % Metamyelocytes % Myelocytes % Promyelocytes % Blast Cells % Platelet Estimate (NORMAL) RBC Morphology Polychromasia Basophilic Stippling Anisocytosis Sodium 133 L (137-145) mmol/L Potassium 4.6 (3.5-5.1) mmol/L Chloride 100 (98-107) mmol/L Carbon Dioxide 24 (22-30) mmol/L Anion Gap 13.6 (5-15) MEQ/L BUN 9 (7-17) mg/dL Creatinine 0.80 (0.52-1.04) mg/dL Estimated GFR > 60.0 ML/MIN Glucose 120 H (74-106) mg/dL Calcium 9.4 (8.4-10.2) mg/dL Total Bilirubin 0.70 (0.2-1.3) mg/dL AST 90 H (14-36) U/L ALT 18 (0-35) U/L Alkaline Phosphatase 162 H (38-126) U/L Creatine Kinase 21 L (30-135) U/L Serum Total Protein 7.7 (6.3-8.2) g/dL Albumin 4.7 (3.5-5.0) g/dL Urine Color STRAW (YELLOW) Urine Appearance CLEAR (CLEAR) Urine pH 8.0 (5-6) Ur Specific [place] 1.003 (1.005-1.025) Urine Protein NEGATIVE (Negative) Urine Ketones NEGATIVE (NEGATIVE) Urine Blood NEGATIVE (0-5) Jono/ul Urine Nitrite NEGATIVE (NEGATIVE) Urine Bilirubin NEGATIVE (NEGATIVE) Urine Urobilinogen NEGATIVE (0-1) mg/dL Ur Leukocyte Esterase NEGATIVE (NEGATIVE) Urine WBC (Auto) NONE (0-5) /HPF Urine RBC (Auto) NONE (0-2) /HPF U Epithel Cells (Auto) NONE (FEW) /HPF Urine Bacteria (Auto) NONE (NEGATIVE) /HPF Urine Culture Reflexed NO (NO) Urine Glucose NEGATIVE (NEGATIVE) mg/dL 12/25/19 Range/Units 16:20 WBC 100.1 H* (4.0-10.5) K/mm3 RBC 3.26 L (4.1-5.4) M/mm3 Hgb 10.3 L (12.0-16.0) gm/dl Hct 33.7 L (35-47) % MCV 103.4 H (78-100) fl MCH 31.6 (26-32) pg MCHC 30.6 L (32-36) g/dl RDW 24.0 H (11.5-14.0) % Plt Count 189 (150-450) K/mm3 MPV 9.5 (7.5-11.0) fl Segmented Neutrophils 16 L (36.0-66.0) % Band Neutrophils 20 H (0.0-2.0) % Lymphocytes (Manual) 2 L (24-44) % Eosinophils (Manual) 3 (0.00-3.0) % Basophils (Manual) 1 (0.0-1.0) % Metamyelocytes 39 % Myelocytes 10 % Promyelocytes 8 % Blast Cells 1 % Platelet Estimate NORMAL (NORMAL) RBC Morphology ABNORMAL Polychromasia RARE Basophilic Stippling 1+ Anisocytosis 1+ Sodium (137-145) mmol/L Potassium (3.5-5.1) mmol/L Chloride (98-107) mmol/L Carbon Dioxide (22-30) mmol/L Anion Gap (5-15) MEQ/L BUN (7-17) mg/dL Creatinine (0.52-1.04) mg/dL Estimated GFR ML/MIN Glucose (74-106) mg/dL Calcium (8.4-10.2) mg/dL Total Bilirubin (0.2-1.3) mg/dL AST (14-36) U/L ALT (0-35) U/L Alkaline Phosphatase (38-126) U/L Creatine Kinase (30-135) U/L Serum Total Protein (6.3-8.2) g/dL Albumin (3.5-5.0) g/dL Urine Color (YELLOW) Urine Appearance (CLEAR) Urine pH (5-6) Ur Specific [place] (1.005-1.025) Urine Protein (Negative) Urine Ketones (NEGATIVE) Urine Blood (0-5) Jono/ul Urine Nitrite (NEGATIVE) Urine Bilirubin (NEGATIVE) Urine Urobilinogen (0-1) mg/dL Ur Leukocyte Esterase (NEGATIVE) Urine WBC (Auto) (0-5) /HPF Urine RBC (Auto) (0-2) /HPF U Epithel Cells (Auto) (FEW) /HPF Urine Bacteria (Auto) (NEGATIVE) /HPF Urine Culture Reflexed (NO) Urine Glucose (NEGATIVE) mg/dL - Progress Progress: improved, pain not gone completely, re-examined Progress Note: 12/25/19 64 years old female with CML is evaluated for right lower extremity pain. She is given morphine x2 and have obtained ultrasound which is negative for DVT. She has good pulses in the right lower extremity. Normal temperature and no color change. No signs of cellulitis. Is white count of 100 which I believe is secondary to CML. She is feeling better on reevaluation. She has been taking Tylenol with codeine with not much relief, I would give her Bostic and have advised her to take it as needed in spite of Tylenol with codeine and outpatient follow-up. I believe patient's symptoms are more of muscular in nature. No radiculopathy. No cauda equina or acute back pain needing imaging of the back. Intact neuro and lower extremities. He was able to ambulate fine in the ER and use restroom without any help. Recommended outpatient follow-up. Counseled pt/family regarding: lab results, diagnosis, need for follow-up, rad results - Departure Departure Disposition: Home Clinical Impression: Acute pain of right lower extremity Leukemia Qualifiers: Leukemia type: unspecified Leukemia Active/Remission status: without remission Qualified Code(s): C95.90 - Leukemia, unspecified not having achieved remission Condition: Stable Critical Care Time: No Referrals: MUSTAPHA NIETO, [Primary Care Provider] - Follow Up with PCP/3 days Additional Instructions: Take pain medications as needed. Do not take Tylenol with codeine while taking Percocet. Follow-up with your primary care/oncology for reevaluation. Return to ER for any worsening. Prescriptions: Oxycodone HCl/Acetaminophen [Percocet 5-325 mg Tablet] 1 each PO Q6H PRN PRN 3 Days #12 tablet MDD 4 PRN Reason: Pain Cyclobenzaprine HCl [Flexeril] 10 mg PO TID PRN #12 tablet PRN Reason: Muscle Spasms
[2019-12-25 18:21] LABS: Total Cells Counted 100
[2019-12-25 18:22] LABS: ANISOCYTOSIS 1+; BAND 20 % (0.0-2.0); Basophil 1 % (0.0-1.0); Basophilic Stippling 1+; Eosinophil 3 % (0.00-3.0); Lymphocytes 2 % (24-44); Metamyelocyte 39 %; Myelocyte 10 %; Neutrophils 16 % (36.0-66.0); Platelet Estimate NORMAL (NORMAL); Polychromasia RARE; Promyelocyte 8 %
[2019-12-25 18:36] VITALS: BP 142/64
[2019-12-25 18:37] LABS: Appearance CLEAR (CLEAR); Bilirubin NEGATIVE (NEGATIVE); Blood NEGATIVE Ery/ul (0-5); Glucose NEGATIVE (NEGATIVE); Ketones NEGATIVE (NEGATIVE); Leukocyte Esterase NEGATIVE (NEGATIVE); Nitrite NEGATIVE (NEGATIVE); Protein,Urine Dip NEGATIVE (Negative); Specific Gravity 1.003 (1.005-1.025); Urobilinogen NEGATIVE mg/dL (0-1)
--- NOTE | 2019-12-26 09:36 | XRAY ---
Indication: DVT. Two-dimensional sonogram and color Doppler imaging of the major venous vessels of the right leg was performed. Comparison: None No thrombus seen in the examined deep venous vessels of the right leg including greater saphenous vein. Veins demonstrate normal compressibility. Venous waveforms are normal with and without augmentation. Impression: Right leg negative for DVT. Comment: Preliminary report was given.
== END 2019-12-25 19:25 | disposition home or self-care (01) ==
LOC: ED 16:10
DX: M79.661 Pain in right lower leg (principal); C95.90 Leukemia, unspecified not having achieved remission; Z79.899 Other long term (current) drug therapy
CPT/HCPCS: 36000; 36415; 80053; 81001; 82550; 85025; 93971; 96360; 96374; 96375; 96376; 99284; J2270; J2405

== ENCOUNTER 2021-11-26 22:12 | Emergency (ER) | payer BC, MEDICARE ==
[2021-11-26] MEDS ORDERED: Sodium Chloride 0.9% 1000 ML 1,000 ML IV STA (23:10)
[2021-11-26] MEDS ORDERED: Sodium Chloride 0.9% 1000 ML 1,000 ML ONE (23:11)
[2021-11-26 23:20] LABS: Absolute Neutrophil Ct (ANC) 4.58 x10^3/uL (1.4-6.9); Basophil (Absolute #) 0.04 x10^3/uL (0-0.4); Eosinophil % 0.8 % (0.00-5.0); Eosinophil (Absolute #) 0.06 x10^3/uL (0-0.5); Hematocrit 33.2 % (35-47); Hemoglobin 11.5 g/dL (12.0-16.0); Lymphocyte (Absolute #) 2.42 x10^3/uL (1.0-4.6); Lymphocytes % 31.8 % (24.0-44.0); Mean Cell Volume 95.1 fL (78-100); Mean Corpuscular Hgb Concent. 34.6 g/dL (32-36); Monocytes % 6.6 % (0.0-12.0); Platelet Count 220 x10^3/uL (150-450); Red Blood Count 3.49 x10^6/uL (4.1-5.4); Red Cell Distribution Width 13.2 % (11.5-14.0); White Blood Count 7.6 x10^3/uL (4.0-10.5)
[2021-11-26 23:32] LABS: ALKALINE PHOSPHATASE 96 U/L (38-126); ANION GAP 11.7 MEQ/L (5-15); BLOOD UREA NITROGEN 10 mg/dL (7-17); CHLORIDE 100 mmol/L (98-107); Calcium 8.7 mg/dL (8.4-10.2); Carbon Dioxide 24 mmol/L (22-30); Creatinine 1 0.86 mg/dL (0.52-1.04); EST GLOMERULAR FILTRATION RATE > 60.0 ML/MIN; Glucose 92 mg/dL (74-106); Potassium 3.3 mmol/L (3.5-5.1); SGOT/AST 23 U/L (14-36); SGPT/ALT 20 U/L (0-35); SODIUM 132 mmol/L (137-145); Total Protein 6.6 g/dL (6.3-8.2)
--- NOTE | 2021-11-27 00:25 | ERPHSYRPT ---
- History of Present Illness Source: patient Exam Limitations: no limitations Patient Subjective Stated Complaint: pt states that she has been dizzy for a few weeks, now has diarrhea and abdominal pain for 3 days. pt has not had a fever or body aches. Pt is on chemo for leukemia. Triage Nursing Assessment: pt is alert and oriented, brought pt back in wheelchair due to her dizziness, Physician History: 66 yo wf w CML presents w dizziness x 2 wks. Pt states that it is worse in the AM and PM and when she goes from lying to standing. Her oncologist says that the dizziness is due to the chemo. She has generalized weakness but no focal weakness. Pt has nausea and diarrhea over the last 2 days but denies vomiting/melena/hematochezia/fever/[place]/neck stiffness/chest pain/dyspnea. Timing/Duration: other (2-3 weeks) Severity: mild Character of Deficits: none Deficits: weak Baseline/Normal Cognition: alert oriented x 3 Current Cognition: alert oriented x 3 Baseline Gait: walks w/o assistance Associated Symptoms: fatigue, nausea, weakness, No confusion, No fever, No chills, No loss of consciousness, No vomiting, No insomnia, No muscle spasms, No numbness/tingling in legs/feet, No paresthesia, No ringing in ears, No seizures, No slurred speech, No trouble walking, No vision changes, No chest pain, No headache Allergies/Adverse Reactions: tramadol [From Ultram] Allergy (Severe, Verified 11/26/21 22:40) Vomiting ciprofloxacin [From Cipro] Allergy (Verified 11/26/21 22:40) gabapentin Allergy (Verified 11/26/21 22:40) meperidine [From Demerol] Allergy (Verified 11/26/21 22:40) Penicillins Allergy (Verified 11/26/21 22:40) shellfish derived Allergy (Verified 11/26/21 22:40) cbd Allergy (Uncoded 11/30/19 17:36) Home Medications: Hydrocodone/Acetaminophen [[place] 5-325 Tablet] 1 each PO Q6-8HPRN PRN 03/20/16 [History] Citalopram Hydrobromide 20 mg* [ceLEXa 20 MG] 1 ea DAILY 11/30/19 [History] Cyclobenzaprine HCl 10 mg [Cyclobenzaprine 10 MG] 1 ea DAILY 11/30/19 [History] Lidocaine HCl 5% Patch [Lidoderm Patch 5%] 1 ea DAILY 11/30/19 [History] Meloxicam [Mobic] 1 ea DAILY 11/30/19 [History] Omeprazole Magnesium [Prilosec Otc] 40 mg DAILY 11/30/19 [History] Hx Tetanus, Diphtheria Vaccination/Date Given: Yes Hx Influenza Vaccination/Date Given: No Hx Pneumococcal Vaccination/Date Given: No Travel Risk - International Travel Have you traveled outside of the country in past 3 weeks: No - Coronavirus Screening Are you exhibiting any of the following symptoms?: Yes Symptoms: Vomiting/Diarrhea Close contact with a COVID-19 positive Pt in past 14-21 Days: No - Vaccine Status Have you recieved a Covid-19 vaccination: Yes It Application Development Manager: Moderna - Vaccination Dates Date of 2cond Vaccination (if applicable): unknown - Review of Systems Constitutional: No Symptoms, Weakness Eyes: No Symptoms Ears, Nose, & Throat: No Symptoms Respiratory: No Symptoms Cardiac: No Symptoms Abdominal/Gastrointestinal: No Symptoms Genitourinary Symptoms: No Symptoms Musculoskeletal: No Symptoms Skin: No Symptoms Neurological: No Symptoms, Dizziness, No Focal Weakness Psychological: No Symptoms Endocrine: No Symptoms Hematologic/Lymphatic: No Symptoms Immunological/Allergic: No Symptoms - Past Medical History Pertinent Past Medical History: Yes Neurological History: No Pertinent History Cardiac History: Hypertension Respiratory History: No Pertinent History, Bronchitis Endocrine Medical History: No Pertinent History Musculoskeletal History: Degenerative Disk Disease, Osteoarthritis GI Medical History: GERD Other Medical History: low ptl and hgb levels recently, leukemia - Past Surgical History Past Surgical History: Yes Gastrointestinal: Appendectomy Musculoskeletal: Orthopedic Surgery Other Surgical History: discectomy - Social History Smoking Status: Former smoker Exposure to second hand smoke: No Drug Use: none Patient Lives Alone: No Significant Family History: no pertinent family hx - Nursing Vital Signs Nursing Vital Signs: Initial Vital Signs Temperature 97.4 F 11/26/21 22:25 Pulse Rate 66 11/26/21 22:25 Respiratory Rate 16 11/26/21 22:25 Blood Pressure 145/62 11/26/21 22:25 O2 Sat by Pulse Oximetry 100 11/26/21 22:25 Pain Scale Pain Intensity 0 Hypertensive - [place] Coma Scale Best Eye Response ([place]): (4) open spontaneously Best Verbal Response ([place]): (5) oriented Best Motor Response ([place]): (6) obeys commands [place] Total: 15 - Physical Exam General Appearance: no apparent distress Eye Exam: bilateral eye: normal inspection, PERRL, EOMI Ears, Nose, Throat Exam: normal ENT inspection, TMs normal, pharynx normal, moist mucous membranes Neck Exam: normal inspection, non-tender, supple, full range of motion, No meningismus, No mass, No Brudzinski, No Kernig's, No carotid bruit Respiratory: normal breath sounds, lungs clear, airway intact, No respiratory distress, No crackles/rales Cardiovascular: regular rate/rhythm, murmur (2/6 [place]), capillary refill <2 sec Gastrointestinal: soft, normal bowel sounds, No tenderness Back Exam: normal inspection, normal range of motion, No CVA tenderness, No vertebral tenderness Extremity Exam: normal inspection, normal range of motion Peripheral Pulses: carotid (R): 2+, carotid (L): 2+ Mental Status: alert, oriented x 3, cooperative skin installer Exam: normal hearing, normal speech, PERRL, No abnormal eye position, No abnormal gag reflex, No abnormal pupil position Coordination/Gait: negative Romberg's sign Motor/Sensory: no motor deficit, no sensory deficit, no pronator drift, negative Babinski's sign DTR: bicep (R): 2+, bicep (L): 2+ Skin Exam: normal color, warm, dry SpO2 Interpretation: normal SpO2: 97 O2 Delivery: Room Air - Course Nursing assessment & vital signs reviewed: Yes EKG Interpreted by Me: RATE (NSR/Rate63/Prolonged Qt-QTc/Low voltage/No acute ST segment changes) - CT Exams Head CT Interpretation: Tele-radiologist Report (Nothing acute) Ordered Tests: Active Orders 24 hr Category Date Time Status EKG-ER Only STAT Care 11/26/21 22:58 Completed HEAD WITHOUT CONTRAST [CT] Stat Exams 11/26/21 22:58 Taken CBC W DIFF Stat Lab 11/26/21 23:10 Completed CMP Stat Lab 11/26/21 23:10 Completed Lactic Acid Stat Lab 11/26/21 23:10 Completed Lactic Acid Stat Lab 11/27/21 01:15 Received TROPONIN Q3H Lab 11/26/21 23:10 Completed UA W/RFX CULTURE Stat Lab 11/27/21 00:50 Completed Medication Summary Discontinued Medications Generic Name Dose Route Start Last Admin Trade Name Bozena PRN Reason Stop Dose Admin Sodium Chloride 1,000 mls @ 999 mls/hr 11/26/21 23:10 11/26/21 23:14 Sodium Chloride 0.9% 1000 Ml IV 11/27/21 00:10 999 mls/hr .Q1H1M STA Administration Sodium Chloride Confirm 11/26/21 23:11 Sodium Chloride 0.9% 1000 Ml Administered 11/26/21 23:12 Dose 1,000 mls @ ud .ROUTE .STK-Enlightened Lifestyle ONE Meclizine HCl 25 mg 11/27/21 00:47 11/27/21 00:50 Meclizine Hcl 25 Mg Tablet PO 11/27/21 00:48 25 mg STAT ONE Administration Meclizine HCl Confirm 11/27/21 00:48 Meclizine Hcl 25 Mg Tablet Administered 11/27/21 00:49 Dose 25 mg .ROUTE .STK-MED ONE Lab/Rad Data: Laboratory Result Diagrams 11/26/21 23:10 11/26/21 23:10 Laboratory Results 11/27/21 11/26/21 11/26/21 Range/Units 00:50 23:10 23:10 WBC (4.0-10.5) x10^3/uL RBC (4.1-5.4) x10^6/uL Hgb (12.0-16.0) g/dL Hct (35-47) % MCV (78-100) fL MCH (26-32) pg MCHC (32-36) g/dL RDW (11.5-14.0) % Plt Count (150-450) x10^3/uL MPV (7.5-11.0) fL Gran % (36.0-66.0) % Immature Gran % (Auto) (0.00-0.4) % Nucleat RBC Rel Count (0.00-0.1) % Eos # (Auto) (0-0.5) x10^3/uL Immature Gran # (Auto) (0.00-0.03) x10^3u/L Absolute Lymphs (auto) (1.0-4.6) x10^3/uL Absolute Monos (auto) (0.0-1.3) x10^3/uL Absolute Nucleated RBC (0.00-0.01) x10^3u/L Lymphocytes % (24.0-44.0) % Monocytes % (0.0-12.0) % Eosinophils % (0.00-5.0) % Basophils % (0.0-0.4) % Absolute Granulocytes (1.4-6.9) x10^3/uL Basophils # (0-0.4) x10^3/uL Sodium 132 L (137-145) mmol/L Potassium 3.3 L (3.5-5.1) mmol/L Chloride 100 (98-107) mmol/L Carbon Dioxide 24 (22-30) mmol/L Anion Gap 11.7 (5-15) MEQ/L BUN 10 (7-17) mg/dL Creatinine 0.86 (0.52-1.04) mg/dL Estimated GFR > 60.0 ML/MIN Glucose 92 (74-106) mg/dL Lactic Acid (0.4-2.0) Calcium 8.7 (8.4-10.2) mg/dL Total Bilirubin 0.50 (0.2-1.3) mg/dL AST 23 (14-36) U/L ALT 20 (0-35) U/L Alkaline Phosphatase 96 (38-126) U/L Troponin I < 0.012 (0.000-0.034) ng/mL Serum Total Protein 6.6 (6.3-8.2) g/dL Albumin 4.0 (3.5-5.0) g/dL Urinalys Dipstick Clnc MAIN LAB Urine Color LT.YELLOW (YELLOW) Urine Appearance CLEAR (CLEAR) Urine pH 7.0 (5-6) Ur Specific [place] 1.010 (1.005-1.025) POC Urine Protein Conf NEGATIVE (Negative) Urine Ketones NEGATIVE (NEGATIVE) Urine Nitrite NEGATIVE (NEGATIVE) Urine Bilirubin NEGATIVE (NEGATIVE) Urine Urobilinogen 0.2 (0-1) mg/dL Urine Leukocytes NEGATIVE (NEGATIVE) Urine WBC (Auto) 0-2 (0-5) /HPF Urine RBC (Auto) NONE (0-2) /HPF U Epithel Cells (Auto) NONE (FEW) /HPF Urine Bacteria (Auto) NONE SEEN (NEGATIVE) /HPF Urine RBC NEGATIVE (0-5) Jono/ul Ur Culture Indicated? NO Urine Glucose NEGATIVE (NEGATIVE) mg/dL 11/26/21 11/26/21 Range/Units 23:10 23:10 WBC 7.6 (4.0-10.5) x10^3/uL RBC 3.49 L (4.1-5.4) x10^6/uL Hgb 11.5 L (12.0-16.0) g/dL Hct 33.2 L (35-47) % MCV 95.1 (78-100) fL MCH 33.0 H (26-32) pg MCHC 34.6 (32-36) g/dL RDW 13.2 (11.5-14.0) % Plt Count 220 (150-450) x10^3/uL MPV 9.0 (7.5-11.0) fL Gran % 60.0 (36.0-66.0) % Immature Gran % (Auto) 0.3 (0.00-0.4) % Nucleat RBC Rel Count 0.0 (0.00-0.1) % Eos # (Auto) 0.06 (0-0.5) x10^3/uL Immature Gran # (Auto) 0.02 (0.00-0.03) x10^3u/L Absolute Lymphs (auto) 2.42 (1.0-4.6) x10^3/uL Absolute Monos (auto) 0.50 (0.0-1.3) x10^3/uL Absolute Nucleated RBC 0.00 (0.00-0.01) x10^3u/L Lymphocytes % 31.8 (24.0-44.0) % Monocytes % 6.6 (0.0-12.0) % Eosinophils % 0.8 (0.00-5.0) % Basophils % 0.5 (0.0-0.4) % Absolute Granulocytes 4.58 (1.4-6.9) x10^3/uL Basophils # 0.04 (0-0.4) x10^3/uL Sodium (137-145) mmol/L Potassium (3.5-5.1) mmol/L Chloride (98-107) mmol/L Carbon Dioxide (22-30) mmol/L Anion Gap (5-15) MEQ/L BUN (7-17) mg/dL Creatinine (0.52-1.04) mg/dL Estimated GFR ML/MIN Glucose (74-106) mg/dL Lactic Acid 2.4 H (0.4-2.0) Calcium (8.4-10.2) mg/dL Total Bilirubin (0.2-1.3) mg/dL AST (14-36) U/L ALT (0-35) U/L Alkaline Phosphatase (38-126) U/L Troponin I (0.000-0.034) ng/mL Serum Total Protein (6.3-8.2) g/dL Albumin (3.5-5.0) g/dL Urinalys Dipstick Clnc Urine Color (YELLOW) Urine Appearance (CLEAR) Urine pH (5-6) Ur Specific [place] (1.005-1.025) POC Urine Protein Conf (Negative) Urine Ketones (NEGATIVE) Urine Nitrite (NEGATIVE) Urine Bilirubin (NEGATIVE) Urine Urobilinogen (0-1) mg/dL Urine Leukocytes (NEGATIVE) Urine WBC (Auto) (0-5) /HPF Urine RBC (Auto) (0-2) /HPF U Epithel Cells (Auto) (FEW) /HPF Urine Bacteria (Auto) (NEGATIVE) /HPF Urine RBC (0-5) Jono/ul Ur Culture Indicated? Urine Glucose (NEGATIVE) mg/dL - Progress Progress: improved Progress Note: 11/27/21 01:12 1L NS bolus 25mg po Meclizine 11/27/21 01:14 Pt feels better and is ready to go home Counseled pt/family regarding: lab results, diagnosis, need for follow-up, rad results - Departure Departure Disposition: Home Clinical Impression: Dizziness, Hypokalemia Condition: Stable Critical Care Time: No Referrals: MUSTAPHA NIETO DO [Primary Care Provider] - Follow up/PCP as directed Instructions: Hypokalemia (DC), Dizziness, Nonvertigo, (DC) Additional Instructions: Meclizine every 6 hours as needed for dizziness Follow up with your family MD or oncologist next week Return to ER for worsening dizziness/focal weakness Prescriptions: Meclizine HCl 25 mg [Antivert 25 mg] 25 mg PO QID PRN PRN #20 tablet PRN Reason: Dizziness Potassium Chloride 20 meq PO TID 7 Days #21
[2021-11-27] MEDS ORDERED: ANTIVERT 25 MG PO ONE (00:47)
[2021-11-27] MEDS ORDERED: ANTIVERT 25 MG ONE (00:48)
[2021-11-27 00:57] LABS: Appearance CLEAR (CLEAR); Bilirubin NEGATIVE (NEGATIVE); Dipstick done @ ? MAIN LAB; Glucose NEGATIVE (NEGATIVE); Ketones NEGATIVE (NEGATIVE); Nitrite NEGATIVE (NEGATIVE); Protein,Urine Dip NEGATIVE (Negative); RBC NEGATIVE Ery/ul (0-5); Urobilinogen 0.2 mg/dL (0-1)
[2021-11-27 00:58] LABS: Bacteria NONE SEEN /HPF (NEGATIVE); Urine Cultured Indicated? NO; WBC 0-2 /HPF (0-5)
[2021-11-27 01:14] VITALS: BP 137/61; PULSE 79
[2021-11-27 01:15] VITALS: O2SAT 97
--- NOTE | 2021-11-27 06:47 | XRAY ---
Indication: Frontal headache. Dizziness and nausea. Multiple contiguous axial images obtained through the head without contrast. Comparison: None Normal appearing brain parenchyma, ventricles, and bony calvarium for patient's age. Visualized paranasal sinuses and mastoid air cells are clear. Impression: Normal CT head without contrast exam. Comment: Preliminary interpretation made by [facility]. No critical discrepancy.
== END 2021-11-27 01:21 | disposition home or self-care (01) ==
LOC: ED 22:12
DX: E87.6 Hypokalemia (principal); R42 Dizziness and giddiness; R53.1 Weakness; R11.0 Nausea; R19.7 Diarrhea, unspecified; I10 Essential (primary) hypertension; Z79.891 Long term (current) use of opiate analgesic; Z79.899 Other long term (current) drug therapy
CPT/HCPCS: 36000; 36415; 70450; 80053; 81015; 83605; 84484; 85025; 93005; 96360; 96374; 99284; A9270-GY

== ENCOUNTER 2023-12-09 23:12 | Emergency (ER) | payer MEDICARE, BC, OTHER ==
--- NOTE | 2023-12-09 23:34 | ERPHSYRPT ---
<SYDNEY PANIAGUA - Last Filed: 12/10/23 19:55> - History of Present Illness Source: patient Exam Limitations: no limitations Timing/Duration: today Activities at Onset: rest Quality: cramping, fullness, sharpness Location: epigastric Chest Pain Radiation: no radiation Severity of Pain-Max: moderate Severity of Pain-Current: moderate Modifying Factors: Worsens With: breathing, movement, palpation, change in position Nitro Today/Relief: no nitro taken today Aspirin Treatment Today: no aspirin today Associated Symptoms: nausea, vomiting, abdominal pain, shortness of breath, diaphoresis, loss of appetite, weakness, No fever Prior Chest Pain/Cardiac Workup: no prior chest pain Hx Tetanus, Diphtheria Vaccination/Date Given: Yes Hx Influenza Vaccination/Date Given: No Hx Pneumococcal Vaccination/Date Given: No <URBANO PATRICIA - Last Filed: 12/10/23 23:30> - History of Present Illness Time Seen by Provider: 12/09/23 23:34 Physician History: The patient, with a known history of leukemia, presented with an acute onset of profuse sweating, panting, and elevated blood pressure. The symptoms began earlier in the evening, with no associated chest pain. The patient reported feeling nauseous and had taken promethazine for symptom relief. The patient also reported constipation, a known side effect of their leukemia treatment, and had taken a Relastor shot and a smooth move drink earlier in the day. The patient expressed concern that the effort to defecate might have contributed to their current symptoms. The patient also reported feeling dizzy, a symptom that had been present earlier in the day and had persisted for about an hour. They also reported a sensation of needing to defecate but being unable to do so, with the last bowel movement being small and earlier in the day. The patient has a history of bowel obstruction, which was previously managed with an NG tube. The patient also reported bringing up some phlegm a few days prior, with no associated fever or cough. They had recently restarted their Eliquis medication after a brief interruption of about three days. (URBANO PATRICIA) Allergies/Adverse Reactions: tramadol [From Ultram] Allergy (Severe, Verified 12/09/23 23:15) Vomiting ciprofloxacin [From Cipro] Allergy (Verified 12/09/23 23:15) gabapentin Allergy (Verified 12/09/23 23:15) meperidine [From Demerol] Allergy (Verified 12/09/23 23:15) Penicillins Allergy (Verified 12/09/23 23:15) shellfish derived Allergy (Verified 12/09/23 23:15) cbd Allergy (Uncoded 12/09/23 23:15) Home Medications: Citalopram Hydrobromide 20 mg* [ceLEXa 20 MG] 1 ea DAILY 11/30/19 [History] Omeprazole Magnesium [Prilosec Otc] 40 mg DAILY 11/30/19 [History] Albuterol Sulfate [Albuterol Sulfate Hfa] 2 puff IH Q6HPRN PRN 12/10/23 [Histor y] Apixaban [Eliquis] 5 mg PO BID 12/10/23 [History] Bosutinib [Bosulif] 100 mg PO TID 12/10/23 [History] Diphenoxylate HCl/Atropine [Lomotil] 1 udtab PO DAILY 12/10/23 [History] Famotidine 40 mg PO DAILY 12/10/23 [History] Fluticasone Propionate [Flonase NASAL] 2 sprays NS DAILY 12/10/23 [History] Hydrocodone/Acetaminophen [Hydrocodone-Acetamin 10-325 mg] 1 each PO Q6HPRN PRN 12/10/23 [History] Isosorbide Mononitrate 30 mg [Imdur 30 MG] 30 mg PO DAILY 12/10/23 [History] Methylnaltrexone [place] [Relistor] 0.6 ml SQ DAILY 12/10/23 [History] Metoprolol Tartrate 25 mg [Lopressor 25MG Tab] 25 mg PO BID 12/10/23 [History] Nitroglycerin 0.4 mg Tablet [Nitrostat 0.4 MG Tablet] 0.4 mg SL Q5MIN PRN MR X 3 PRN 12/10/23 [History] Ondansetron ODT 4 MG [Zofran Odt 4 mg] 4 mg SL DAILY 12/10/23 [History] Prochlorperazine Maleate 10 mg PO UD PRN 12/10/23 [History] Trazodone HCl 50 mg [Desyrel 50 mg] 50 mg PO HS 12/10/23 [History] - Review of Systems All Other Systems: Reviewed and Negative <URBANO PATRICIA - Last Filed: 12/10/23 23:30> - Past Medical History Pertinent Past Medical History: Yes Neurological History: No Pertinent History Cardiac History: Hypertension Respiratory History: No Pertinent History, Bronchitis Endocrine Medical History: No Pertinent History Musculoskeletal History: Degenerative Disk Disease, Osteoarthritis GI Medical History: GERD Other Medical History: low ptl and hgb levels recently, leukemia - Past Surgical History Past Surgical History: Yes Gastrointestinal: Appendectomy Musculoskeletal: Orthopedic Surgery Other Surgical History: discectomy Significant Family History: no pertinent family hx - Social History Smoking Status: Former smoker Exposure to second hand smoke: No Drug Use: none Patient Lives Alone: No <URBANO PATRICIA - Last Filed: 12/10/23 23:30> - Physical Exam General Appearance: moderate distress Eye Exam: eyes nml inspection Neck Exam: normal inspection, supple, full range of motion Respiratory Exam: crackles/rales (left) Cardiovascular Exam: regular rate/rhythm, capillary refill <2 sec, No edema Gastrointestinal/Abdomen Exam: soft, tenderness (diffuse), No distention, No ma ss Back Exam: normal inspection, No CVA tenderness Extremity Exam: No swelling, No tenderness Neurologic Exam: alert, oriented x 3, cooperative Skin Exam: warm, dry, pale SpO2 Interpretation: normal O2 Delivery: Room Air <URBANO PATRICIA - Last Filed: 12/10/23 23:30> - Nursing Vital Signs Nursing Vital Signs: Initial Vital Signs Temperature 96.7 F 12/09/23 23:13 Pulse Rate 63 12/09/23 23:13 Respiratory Rate 18 12/09/23 23:13 Blood Pressure 194/78 12/09/23 23:13 O2 Sat by Pulse Oximetry 100 12/09/23 23:13 Pain Scale Pain Intensity 0 - Course Nursing assessment & vital signs reviewed: Yes EKG Interpreted by Me: RATE (66), Sinus Rhythm, NORMAL AXIS, NORMAL INTERVALS, NORMAL QRS, NORMAL ST-T <URBANO PATRICIA - Last Filed: 12/10/23 23:30> Ordered Tests: Active Orders 24 hr Category Date Time Status EKG-ER Only STAT Care 12/09/23 23:41 Completed EKG-ER Only STAT Care 12/10/23 04:09 Completed IV Insertion STAT Care 12/09/23 23:41 Completed NPO (ED) STAT Care 12/09/23 23:41 Completed ABDOMEN AND PELVIS W/0 CONTRAS [CT] Stat Exams 12/09/23 23:44 Completed CHEST 1 VIEW (PORTABLE) Stat Exams 12/09/23 23:43 Completed CHEST WITHOUT CONTRAST [CT] Stat Exams 12/10/23 01:05 Completed BMP Stat Lab 12/10/23 03:24 Completed CREATININE,URINE RANDOM Stat Lab 12/10/23 00:49 Completed LIPID PROFILE Stat Lab 12/10/23 01:02 Completed Lactic Acid Stat Lab 12/09/23 23:50 Completed Lactic Acid Stat Lab 12/10/23 02:07 Completed SODIUM Stat Lab 12/10/23 06:41 Completed Sodium, Urine Stat Lab 12/10/23 00:49 Completed TROPONIN Q4H Lab 12/10/23 03:24 Completed TROPONIN Q4H Lab 12/10/23 06:41 Completed TROPONIN Q4H Lab 12/10/23 13:54 Completed TROPONIN Q4H Lab 12/10/23 18:27 Completed UA W/RFX UR CULTURE Stat Lab 12/10/23 00:49 Completed VENOUS BLOOD GAS Stat Lab 12/10/23 00:05 Completed Transfer Order Routine Transfer 12/10/23 Ordered Medication Summary Discontinued Medications Generic Name Dose Route Start Last Admin Trade Name Freq PRN Reason Stop Dose Admin Droperidol 1.25 mg 12/09/23 23:41 12/09/23 23:56 Droperidol 5 Mg/2 Ml Vial IV 12/09/23 23:42 1.25 mg STAT ONE Administration Droperidol Confirm 12/09/23 23:55 Droperidol 5 Mg/2 Ml Vial Administered 12/09/23 23:56 Dose 5 mg .ROUTE .STK-MED ONE Droperidol 1.25 mg 12/10/23 02:02 12/10/23 02:04 Droperidol 5 Mg/2 Ml Vial IV 12/10/23 02:03 1.25 mg STAT ONE Administration Droperidol Confirm 12/10/23 02:04 Droperidol 5 Mg/2 Ml Vial Administered 12/10/23 02:05 Dose 5 mg .ROUTE .STK-MED ONE Droperidol 1.25 mg 12/10/23 04:18 12/10/23 04:22 Droperidol 5 Mg/2 Ml Vial IV 12/10/23 04:19 1.25 mg STAT ONE Administration Droperidol Confirm 12/10/23 04:21 Droperidol 5 Mg/2 Ml Vial Administered 12/10/23 04:22 Dose 5 mg .ROUTE .STK-MED ONE Droperidol 1.25 mg 12/10/23 06:24 12/10/23 06:41 Droperidol 5 Mg/2 Ml Vial IV 12/10/23 06:25 1.25 mg STAT ONE Administration Droperidol Confirm 12/10/23 06:40 Droperidol 5 Mg/2 Ml Vial Administered 12/10/23 06:41 Dose 5 mg .ROUTE .STK-MED ONE Fentanyl Citrate 25 mcg 12/10/23 11:34 12/10/23 11:45 Fentanyl Citrate 100 Mcg/2 Ml* Vial IV 12/10/23 11:35 25 mcg STAT ONE Administration Fentanyl Citrate Confirm 12/10/23 11:41 Fentanyl Citrate 100 Mcg/2 Ml* Vial Administered 12/10/23 11:42 Dose 100 mcg .ROUTE .STK-MED ONE Fentanyl Citrate 50 mcg 12/10/23 14:58 12/10/23 15:02 Fentanyl Citrate 100 Mcg/2 Ml* Vial IV 12/10/23 14:59 50 mcg STAT ONE Administration Fentanyl Citrate Confirm 12/10/23 15:01 Fentanyl Citrate 100 Mcg/2 Ml* Vial Administered 12/10/23 15:02 Dose 100 mcg .ROUTE .STK-MED ONE Sodium Chloride 1,000 mls @ 999 mls/hr 12/09/23 23:41 12/10/23 01:27 Sodium Chloride 0.9% 1000 Ml IV 12/10/23 00:41 Infused .Q1H1M STA Infusion Sodium Chloride Confirm 12/09/23 23:55 Sodium Chloride 0.9% 1000 Ml Administered 12/09/23 23:56 Dose 1,000 mls @ ud .ROUTE .STK-MED ONE Morphine Sulfate 2 mg 12/09/23 23:41 12/09/23 23:56 Morphine Sulfate 2 Mg/Ml Inj IV 07/20/24 23:42 2 mg STAT ONE Administration Morphine Sulfate Confirm 12/09/23 23:55 Morphine Sulfate 2 Mg/Ml Inj Administered 12/09/23 23:56 Dose 2 mg .ROUTE .STK-MED ONE Ondansetron HCl 4 mg 12/10/23 09:49 12/10/23 09:51 Ondansetron Hcl 4 Mg/2 Ml Vial IV 12/10/23 09:50 4 mg STAT ONE Administration Ondansetron HCl Confirm 12/10/23 09:48 Ondansetron Hcl 4 Mg/2 Ml Vial Administered 12/10/23 09:49 Dose 4 mg .ROUTE .STK-MED ONE Lab/Rad Data: Laboratory Result Diagrams 12/09/23 00:06 12/10/23 06:41 Laboratory Results 12/10/23 12/10/23 12/10/23 Range/Units 18:27 13:54 06:41 WBC (3.98-10.04) x10^3/uL RBC (3.93-5.22) x10^6/uL Hgb (11.2-15.7) g/dL Hct (34.1-44.9) % MCV (79.4-94.8) fL MCH (25.6-32.2) pg MCHC (32.2-35.5) g/dL RDW (11.7-14.4) % Plt Count (182-369) x10^3/uL MPV (9.4-12.3) fL Gran % (34.0-71.1) % Immature Gran % (Auto) (0.001-0.429) % Nucleat RBC Rel Count (0.00-0.2) % Eos # (Auto) (0.04-0.36) x10^3/uL Immature Gran # (Auto) (0.001-0.031) x10^3u/L Absolute Lymphs (auto) (1.18-3.74) x10^3/uL Absolute Monos (auto) (0.24-0.86) x10^3/uL Absolute Nucleated RBC (0.00-0.012) x10^3u/L Lymphocytes % (19.3-51.7) % Monocytes % (4.7-12.5) % Eosinophils % (0.7-5.8) % Basophils % (0.1-1.2) % Absolute Granulocytes (1.56-6.13) x10^3/uL Basophils # (0.01-0.08) x10^3/uL PT (9.4-12.5) SECONDS INR (0.8-3.0) pO2/FiO2 Ratio % VBG pH (7.32-7.42) VBG pCO2 at Pat Temp (42-55) mm/Hg VBG pO2 at Pat Temp (25-40) mm/Hg VBG HCO3 (22-28) meq/L VBG O2 Sat (Kartik) (95-100) VBG Base Excess (-2.0-2.0) VBG Hemoglobin VBG Carboxyhemoglobin (0.0-6.9) % T HGB POC Potassium (3.5-5.1) Sodium 124 L (135-145) mmol/L Potassium (3.5-5.1) mmol/L Chloride (98-107) mmol/L Carbon Dioxide (22-30) mmol/L Anion Gap (5-15) MEQ/L BUN (7-17) mg/dL Creatinine (0.52-1.04) mg/dL Estimated GFR ML/MIN Glucose (74-106) mg/dL Lactic Acid (0.4-2.0) Calcium (8.4-10.2) mg/dL Total Bilirubin (0.2-1.3) mg/dL AST (14-36) U/L ALT (0-35) U/L Alkaline Phosphatase (38-126) U/L Troponin I 0.076 H* 0.070 H* (0.000-0.033) ng/mL Serum Total Protein (6.3-8.2) g/dL Albumin (3.5-5.0) g/dL Triglycerides (30-150) mg/dL Cholesterol (50-200) mg/dL LDL Cholesterol (30-100) mg/dL HDL Cholesterol (40-60) mg/dL Heart Disease Risk Ratio Amylase (30-110) U/L Lipase (23-300) U/L Procalcitonin (0.030-0.080) ng/mL TSH 3rd Generation (0.470-4.680) mIU/L Urine Color (Yellow) Urine Appearance (Clear) Urine pH (4.6-8.0) Ur Specific Brant (1.005-1.030) Urine Protein (Negative) Urine Glucose (UA) (Negative) mg/dL Urine Ketones (Negative) Urine Blood (Negative) Urine Nitrite (Negative) Urine Bilirubin (Negative) Urine Urobilinogen (0.2) mg/dL Ur Leukocyte Esterase (Negative) U Hyaline Cast (Auto) (0-2) /LPF Urine Microscopic RBC (0-5) /HPF Urine Microscopic WBC (0-5) /HPF Ur Epithelial Cells (None Seen) /HPF Urine Bacteria (None Seen) /HPF Urine Culture Reflexed (NO) Ur Random Creatinine MG/DL Urine Sodium (30-90) mmol/L 12/10/23 12/10/23 12/10/23 Range/Units 06:41 03:24 03:24 WBC (3.98-10.04) x10^3/uL RBC (3.93-5.22) x10^6/uL Hgb (11.2-15.7) g/dL Hct (34.1-44.9) % MCV (79.4-94.8) fL MCH (25.6-32.2) pg MCHC (32.2-35.5) g/dL RDW (11.7-14.4) % Plt Count (182-369) x10^3/uL MPV (9.4-12.3) fL Gran % (34.0-71.1) % Immature Gran % (Auto) (0.001-0.429) % Nucleat RBC Rel Count (0.00-0.2) % Eos # (Auto) (0.04-0.36) x10^3/uL Immature Gran # (Auto) (0.001-0.031) x10^3u/L Absolute Lymphs (auto) (1.18-3.74) x10^3/uL Absolute Monos (auto) (0.24-0.86) x10^3/uL Absolute Nucleated RBC (0.00-0.012) x10^3u/L Lymphocytes % (19.3-51.7) % Monocytes % (4.7-12.5) % Eosinophils % (0.7-5.8) % Basophils % (0.1-1.2) % Absolute Granulocytes (1.56-6.13) x10^3/uL Basophils # (0.01-0.08) x10^3/uL PT (9.4-12.5) SECONDS INR (0.8-3.0) pO2/FiO2 Ratio % VBG pH (7.32-7.42) VBG pCO2 at Pat Temp (42-55) mm/Hg VBG pO2 at Pat Temp (25-40) mm/Hg VBG HCO3 (22-28) meq/L VBG O2 Sat (Kartik) (95-100) VBG Base Excess (-2.0-2.0) VBG Hemoglobin VBG Carboxyhemoglobin (0.0-6.9) % T HGB POC Potassium (3.5-5.1) Sodium 123 L (135-145) mmol/L Potassium 3.6 (3.5-5.1) mmol/L Chloride 91 L (98-107) mmol/L Carbon Dioxide 20 L (22-30) mmol/L Anion Gap 15.7 H (5-15) MEQ/L BUN 9 (7-17) mg/dL Creatinine 0.58 (0.52-1.04) mg/dL Estimated GFR 98.5 ML/MIN Glucose 150 H (74-106) mg/dL Lactic Acid (0.4-2.0) Calcium 9.2 (8.4-10.2) mg/dL Total Bilirubin (0.2-1.3) mg/dL AST (14-36) U/L ALT (0-35) U/L Alkaline Phosphatase (38-126) U/L Troponin I 0.051 H* 0.021 (0.000-0.033) ng/mL Serum Total Protein (6.3-8.2) g/dL Albumin (3.5-5.0) g/dL Triglycerides (30-150) mg/dL Cholesterol (50-200) mg/dL LDL Cholesterol (30-100) mg/dL HDL Cholesterol (40-60) mg/dL Heart Disease Risk Ratio Amylase (30-110) U/L Lipase (23-300) U/L Procalcitonin (0.030-0.080) ng/mL TSH 3rd Generation (0.470-4.680) mIU/L Urine Color (Yellow) Urine Appearance (Clear) Urine pH (4.6-8.0) Ur Specific Brant (1.005-1.030) Urine Protein (Negative) Urine Glucose (UA) (Negative) mg/dL Urine Ketones (Negative) Urine Blood (Negative) Urine Nitrite (Negative) Urine Bilirubin (Negative) Urine Urobilinogen (0.2) mg/dL Ur Leukocyte Esterase (Negative) U Hyaline Cast (Auto) (0-2) /LPF Urine Microscopic RBC (0-5) /HPF Urine Microscopic WBC (0-5) /HPF Ur Epithelial Cells (None Seen) /HPF Urine Bacteria (None Seen) /HPF Urine Culture Reflexed (NO) Ur Random Creatinine MG/DL Urine Sodium (30-90) mmol/L 12/10/23 12/10/23 12/10/23 Range/Units 02:07 01:02 00:49 WBC (3.98-10.04) x10^3/uL RBC (3.93-5.22) x10^6/uL Hgb (11.2-15.7) g/dL Hct (34.1-44.9) % MCV (79.4-94.8) fL MCH (25.6-32.2) pg MCHC (32.2-35.5) g/dL RDW (11.7-14.4) % Plt Count (182-369) x10^3/uL MPV (9.4-12.3) fL Gran % (34.0-71.1) % Immature Gran % (Auto) (0.001-0.429) % Nucleat RBC Rel Count (0.00-0.2) % Eos # (Auto) (0.04-0.36) x10^3/uL Immature Gran # (Auto) (0.001-0.031) x10^3u/L Absolute Lymphs (auto) (1.18-3.74) x10^3/uL Absolute Monos (auto) (0.24-0.86) x10^3/uL Absolute Nucleated RBC (0.00-0.012) x10^3u/L Lymphocytes % (19.3-51.7) % Monocytes % (4.7-12.5) % Eosinophils % (0.7-5.8) % Basophils % (0.1-1.2) % Absolute Granulocytes (1.56-6.13) x10^3/uL Basophils # (0.01-0.08) x10^3/uL PT (9.4-12.5) SECONDS INR (0.8-3.0) pO2/FiO2 Ratio % VBG pH (7.32-7.42) VBG pCO2 at Pat Temp (42-55) mm/Hg VBG pO2 at Pat Temp (25-40) mm/Hg VBG HCO3 (22-28) meq/L VBG O2 Sat ([place]) (95-100) VBG Base Excess (-2.0-2.0) VBG Hemoglobin VBG Carboxyhemoglobin (0.0-6.9) % T HGB POC Potassium (3.5-5.1) Sodium (135-145) mmol/L Potassium (3.5-5.1) mmol/L Chloride (98-107) mmol/L Carbon Dioxide (22-30) mmol/L Anion Gap (5-15) MEQ/L BUN (7-17) mg/dL Creatinine (0.52-1.04) mg/dL Estimated GFR ML/MIN Glucose (74-106) mg/dL Lactic Acid 1.9 (0.4-2.0) Calcium (8.4-10.2) mg/dL Total Bilirubin (0.2-1.3) mg/dL AST (14-36) U/L ALT (0-35) U/L Alkaline Phosphatase (38-126) U/L Troponin I (0.000-0.033) ng/mL Serum Total Protein (6.3-8.2) g/dL Albumin (3.5-5.0) g/dL Triglycerides 150 (30-150) mg/dL Cholesterol 129 (50-200) mg/dL LDL Cholesterol 66 (30-100) mg/dL HDL Cholesterol 42 (40-60) mg/dL Heart Disease Risk Ratio 3.0 Amylase (30-110) U/L Lipase (23-300) U/L Procalcitonin (0.030-0.080) ng/mL TSH 3rd Generation (0.470-4.680) mIU/L Urine Color (Yellow) Urine Appearance (Clear) Urine pH (4.6-8.0) Ur Specific Brant (1.005-1.030) Urine Protein (Negative) Urine Glucose (UA) (Negative) mg/dL Urine Ketones (Negative) Urine Blood (Negative) Urine Nitrite (Negative) Urine Bilirubin (Negative) Urine Urobilinogen (0.2) mg/dL Ur Leukocyte Esterase (Negative) U Hyaline Cast (Auto) (0-2) /LPF Urine Microscopic RBC (0-5) /HPF Urine Microscopic WBC (0-5) /HPF Ur Epithelial Cells (None Seen) /HPF Urine Bacteria (None Seen) /HPF Urine Culture Reflexed (NO) Ur Random Creatinine 16.4 MG/DL Urine Sodium 138 H (30-90) mmol/L 12/10/23 12/10/23 12/09/23 Range/Units 00:49 00:05 23:50 WBC (3.98-10.04) x10^3/uL RBC (3.93-5.22) x10^6/uL Hgb (11.2-15.7) g/dL Hct (34.1-44.9) % MCV (79.4-94.8) fL MCH (25.6-32.2) pg MCHC (32.2-35.5) g/dL RDW (11.7-14.4) % Plt Count (182-369) x10^3/uL MPV (9.4-12.3) fL Gran % (34.0-71.1) % Immature Gran % (Auto) (0.001-0.429) % Nucleat RBC Rel Count (0.00-0.2) % Eos # (Auto) (0.04-0.36) x10^3/uL Immature Gran # (Auto) (0.001-0.031) x10^3u/L Absolute Lymphs (auto) (1.18-3.74) x10^3/uL Absolute Monos (auto) (0.24-0.86) x10^3/uL Absolute Nucleated RBC (0.00-0.012) x10^3u/L Lymphocytes % (19.3-51.7) % Monocytes % (4.7-12.5) % Eosinophils % (0.7-5.8) % Basophils % (0.1-1.2) % Absolute Granulocytes (1.56-6.13) x10^3/uL Basophils # (0.01-0.08) x10^3/uL PT (9.4-12.5) SECONDS INR (0.8-3.0) pO2/FiO2 Ratio 21.0 % VBG pH 7.51 H (7.32-7.42) VBG pCO2 at Pat Temp 25 L (42-55) mm/Hg VBG pO2 at Pat Temp 29 (25-40) mm/Hg VBG HCO3 19.9 L (22-28) meq/L VBG O2 Sat (Kartik) 54.5 L (95-100) VBG Base Excess -1.6 (-2.0-2.0) VBG Hemoglobin 13.4 VBG Carboxyhemoglobin 3.7 (0.0-6.9) % T HGB POC Potassium 3.4 L (3.5-5.1) Sodium (135-145) mmol/L Potassium (3.5-5.1) mmol/L Chloride (98-107) mmol/L Carbon Dioxide (22-30) mmol/L Anion Gap (5-15) MEQ/L BUN (7-17) mg/dL Creatinine (0.52-1.04) mg/dL Estimated GFR ML/MIN Glucose (74-106) mg/dL Lactic Acid 2.8 H (0.4-2.0) Calcium (8.4-10.2) mg/dL Total Bilirubin (0.2-1.3) mg/dL AST (14-36) U/L ALT (0-35) U/L Alkaline Phosphatase (38-126) U/L Troponin I (0.000-0.033) ng/mL Serum Total Protein (6.3-8.2) g/dL Albumin (3.5-5.0) g/dL Triglycerides (30-150) mg/dL Cholesterol (50-200) mg/dL LDL Cholesterol (30-100) mg/dL HDL Cholesterol (40-60) mg/dL Heart Disease Risk Ratio Amylase (30-110) U/L Lipase (23-300) U/L Procalcitonin (0.030-0.080) ng/mL TSH 3rd Generation (0.470-4.680) mIU/L Urine Color Yellow (Yellow) Urine Appearance Clear (Clear) Urine pH 8.0 (4.6-8.0) Ur Specific Brant 1.010 (1.005-1.030) Urine Protein Negative (Negative) Urine Glucose (UA) Negative (Negative) mg/dL Urine Ketones Negative (Negative) Urine Blood Negative (Negative) Urine Nitrite Negative (Negative) Urine Bilirubin Negative (Negative) Urine Urobilinogen 0.2 (0.2) mg/dL Ur Leukocyte Esterase Trace A (Negative) U Hyaline Cast (Auto) NONE SEEN (0-2) /LPF Urine Microscopic RBC 0-2 (0-5) /HPF Urine Microscopic WBC 0-2 (0-5) /HPF Ur Epithelial Cells None Seen (None Seen) /HPF Urine Bacteria None Seen (None Seen) /HPF Urine Culture Reflexed NO (NO) Ur Random Creatinine MG/DL Urine Sodium (30-90) mmol/L 12/09/23 12/09/23 12/09/23 Range/Units 00:06 00:06 00:06 WBC (3.98-10.04) x10^3/uL RBC (3.93-5.22) x10^6/uL Hgb (11.2-15.7) g/dL Hct (34.1-44.9) % MCV (79.4-94.8) fL MCH (25.6-32.2) pg MCHC (32.2-35.5) g/dL RDW (11.7-14.4) % Plt Count (182-369) x10^3/uL MPV (9.4-12.3) fL Gran % (34.0-71.1) % Immature Gran % (Auto) (0.001-0.429) % Nucleat RBC Rel Count (0.00-0.2) % Eos # (Auto) (0.04-0.36) x10^3/uL Immature Gran # (Auto) (0.001-0.031) x10^3u/L Absolute Lymphs (auto) (1.18-3.74) x10^3/uL Absolute Monos (auto) (0.24-0.86) x10^3/uL Absolute Nucleated RBC (0.00-0.012) x10^3u/L Lymphocytes % (19.3-51.7) % Monocytes % (4.7-12.5) % Eosinophils % (0.7-5.8) % Basophils % (0.1-1.2) % Absolute Granulocytes (1.56-6.13) x10^3/uL Basophils # (0.01-0.08) x10^3/uL PT 11.7 (9.4-12.5) SECONDS INR 1.08 (0.8-3.0) pO2/FiO2 Ratio % VBG pH (7.32-7.42) VBG pCO2 at Pat Temp (42-55) mm/Hg VBG pO2 at Pat Temp (25-40) mm/Hg VBG HCO3 (22-28) meq/L VBG O2 Sat (Kartik) (95-100) VBG Base Excess (-2.0-2.0) VBG Hemoglobin VBG Carboxyhemoglobin (0.0-6.9) % T HGB POC Potassium (3.5-5.1) Sodium 123 L (135-145) mmol/L Potassium 3.9 (3.5-5.1) mmol/L Chloride 90 L (98-107) mmol/L Carbon Dioxide 21 L (22-30) mmol/L Anion Gap 16.5 H (5-15) MEQ/L BUN 10 (7-17) mg/dL Creatinine 0.67 (0.52-1.04) mg/dL Estimated GFR 95.2 ML/MIN Glucose 123 H (74-106) mg/dL Lactic Acid (0.4-2.0) Calcium 9.8 (8.4-10.2) mg/dL Total Bilirubin 0.60 (0.2-1.3) mg/dL AST 39 H (14-36) U/L ALT 43 H (0-35) U/L Alkaline Phosphatase 116 (38-126) U/L Troponin I < 0.012 (0.000-0.033) ng/mL Serum Total Protein 7.3 (6.3-8.2) g/dL Albumin 5.0 (3.5-5.0) g/dL Triglycerides (30-150) mg/dL Cholesterol (50-200) mg/dL LDL Cholesterol (30-100) mg/dL HDL Cholesterol (40-60) mg/dL Heart Disease Risk Ratio Amylase 81 (30-110) U/L Lipase 136 (23-300) U/L Procalcitonin 0.036 (0.030-0.080) ng/mL TSH 3rd Generation 2.238 (0.470-4.680) mIU/L Urine Color (Yellow) Urine Appearance (Clear) Urine pH (4.6-8.0) Ur Specific Brant (1.005-1.030) Urine Protein (Negative) Urine Glucose (UA) (Negative) mg/dL Urine Ketones (Negative) Urine Blood (Negative) Urine Nitrite (Negative) Urine Bilirubin (Negative) Urine Urobilinogen (0.2) mg/dL Ur Leukocyte Esterase (Negative) U Hyaline Cast (Auto) (0-2) /LPF Urine Microscopic RBC (0-5) /HPF Urine Microscopic WBC (0-5) /HPF Ur Epithelial Cells (None Seen) /HPF Urine Bacteria (None Seen) /HPF Urine Culture Reflexed (NO) Ur Random Creatinine MG/DL Urine Sodium (30-90) mmol/L 12/09/23 Range/Units 00:06 WBC 11.9 H (3.98-10.04) x10^3/uL RBC 4.02 (3.93-5.22) x10^6/uL Hgb 12.2 (11.2-15.7) g/dL Hct 36.1 (34.1-44.9) % MCV 89.8 (79.4-94.8) fL MCH 30.3 (25.6-32.2) pg MCHC 33.8 (32.2-35.5) g/dL RDW 13.2 (11.7-14.4) % Plt Count 295 (182-369) x10^3/uL MPV 10.1 (9.4-12.3) fL Gran % 74.1 H (34.0-71.1) % Immature Gran % (Auto) 0.3 (0.001-0.429) % Nucleat RBC Rel Count 0.0 (0.00-0.2) % Eos # (Auto) 0.12 (0.04-0.36) x10^3/uL Immature Gran # (Auto) 0.04 H (0.001-0.031) x10^3u/L Absolute Lymphs (auto) 2.14 (1.18-3.74) x10^3/uL Absolute Monos (auto) 0.74 (0.24-0.86) x10^3/uL Absolute Nucleated RBC 0.00 (0.00-0.012) x10^3u/L Lymphocytes % 18.0 L (19.3-51.7) % Monocytes % 6.2 (4.7-12.5) % Eosinophils % 1.0 (0.7-5.8) % Basophils % 0.4 (0.1-1.2) % Absolute Granulocytes 8.78 H (1.56-6.13) x10^3/uL Basophils # 0.05 (0.01-0.08) x10^3/uL PT (9.4-12.5) SECONDS INR (0.8-3.0) pO2/FiO2 Ratio % VBG pH (7.32-7.42) VBG pCO2 at Pat Temp (42-55) mm/Hg VBG pO2 at Pat Temp (25-40) mm/Hg VBG HCO3 (22-28) meq/L VBG O2 Sat (Kartik) (95-100) VBG Base Excess (-2.0-2.0) VBG Hemoglobin VBG Carboxyhemoglobin (0.0-6.9) % T HGB POC Potassium (3.5-5.1) Sodium (135-145) mmol/L Potassium (3.5-5.1) mmol/L Chloride (98-107) mmol/L Carbon Dioxide (22-30) mmol/L Anion Gap (5-15) MEQ/L BUN (7-17) mg/dL Creatinine (0.52-1.04) mg/dL Estimated GFR ML/MIN Glucose (74-106) mg/dL Lactic Acid (0.4-2.0) Calcium (8.4-10.2) mg/dL Total Bilirubin (0.2-1.3) mg/dL AST (14-36) U/L ALT (0-35) U/L Alkaline Phosphatase (38-126) U/L Troponin I (0.000-0.033) ng/mL Serum Total Protein (6.3-8.2) g/dL Albumin (3.5-5.0) g/dL Triglycerides (30-150) mg/dL Cholesterol (50-200) mg/dL LDL Cholesterol (30-100) mg/dL HDL Cholesterol (40-60) mg/dL Heart Disease Risk Ratio Amylase (30-110) U/L Lipase (23-300) U/L Procalcitonin (0.030-0.080) ng/mL TSH 3rd Generation (0.470-4.680) mIU/L Urine Color (Yellow) Urine Appearance (Clear) Urine pH (4.6-8.0) Ur Specific Brant (1.005-1.030) Urine Protein (Negative) Urine Glucose (UA) (Negative) mg/dL Urine Ketones (Negative) Urine Blood (Negative) Urine Nitrite (Negative) Urine Bilirubin (Negative) Urine Urobilinogen (0.2) mg/dL Ur Leukocyte Esterase (Negative) U Hyaline Cast (Auto) (0-2) /LPF Urine Microscopic RBC (0-5) /HPF Urine Microscopic WBC (0-5) /HPF Ur Epithelial Cells (None Seen) /HPF Urine Bacteria (None Seen) /HPF Urine Culture Reflexed (NO) Ur Random Creatinine MG/DL Urine Sodium (30-90) mmol/L <SYDNEY PANIAGUA - Last Filed: 12/10/23 19:55> - Progress Progress: improved Air Movement: fair Blood Culture(s) Obtained: No Antibiotics given: No Discussed with DrBety: Other (Kirsten) Will see patient in: other (transfer to [place]) Counseled pt/family regarding: lab results, diagnosis, need for follow-up, rad results <URBANO PATRICIA - Last Filed: 12/10/23 23:30> - Progress Progress Note: 12/10/23 16:06 Patient is still in the ER for almost 16 hours. Patient was originally accepted transfer to [facility] but no bed is available yet. Patient troponin series turned out to be mildly positive on the third 0.05 and the fourth 1.07. Patient denies having any chest pain but has low back pain. Has history of scoliosis. We have called [facility] but not sure when the bed would be available. Patient is not comfortable with staying in the ER bed. I have repeated EKG which did not show any acute ST elevation. I have discussed with Dr. Ayala, reviewed history, workup and plan of transfer to [place] and patient would be admitted here until bed becomes available at [facility]. I have discussed with patient as well and she agrees with this plan. 12/10/23 19:55 Later on bed became available and patient is transferred from here to [facility]. (SYDNEY PANIAGUA) Patient found to have a sodium of 123 with symptoms. [facility] does not have the capabilities to run a serum osm as it is a send out lab and results will not be available for 3-4 days. Prior to Na result she had received 1L NS. No signs of volume overload. Will continue fluid restriction at this time. Initial troponin and EKG wnl. Mildly elevated transaminases. Lactate 2.8 down to 1.9. Discussed admission with Dr. Pinto who recommends transfer to facility that has serum osm available to safely treat her hyponatremia. Dr. Curtis accepts for admission at 0325. Currently no beds at [facility] transfer [facility] thinks there will be availability in the morning. Patient still having nausea requesting more meds, repeat EKG showed QT 449, QTc 474. Will reorder Droperidol. 12/10/23 23:29 (URBANO PATRICIA) Medical Desision Making - Discussion of managment Care discussed with:: hospitalist Reviewed:: Test results Agreed on:: Treatment plan, place in [facility] (Dr. Ayala) Will see patient: in hospital <SYDNEY PANIAGUA - Last Filed: 12/10/23 19:55> - Diagnostic Testing Diagnostic test were ordered, analyzed, and reviewed by me: Yes Radiological Interpretation: Interpreted by me, Reviewed by me, Teleradiologist Report - Risk of complications The pt has a mod risk of morbidity or mortality based on: Need for prescription drug management The pt has a high risk of morbidity or mortality based on: Decision regarding hospitilization or escalation of hosp level of care <URBANO PATRICIA - Last Filed: 12/10/23 23:30> - Departure Departure Disposition: Observation <SYDNEY PANIAGUA - Last Filed: 12/10/23 19:55> - Departure Departure Disposition: Transfer Critical Care Time: No <URBANO PATRICIA - Last Filed: 12/10/23 23:30> - Departure Clinical Impression: Acute hyponatremia, Elevated lactic acid level, Dizziness, General weakness, Leukemia, Transaminitis, Hiatal hernia, Nausea and vomiting, Elevated troponin Condition: Stable Referrals: DESTINEY [facility] [Primary Care Provider] - Follow up/PCP as directed Instructions: Hyponatremia
[2023-12-09 23:46] VITALS: TEMP 96.7
[2023-12-09] MEDS ORDERED: MORPHINE SULFATE 2 MG INJ ONE (23:55)
[2023-12-09] MEDS ORDERED: Sodium Chloride 0.9% 1000 ML 1,000 ML ONE (23:55)
[2023-12-09] MEDS: MORPHINE SULFATE 2 MG INJ IV ONE (23:56)
[2023-12-09] MEDS: Sodium Chloride 0.9% 1000 ML 1,000 ML IV STA (23:57)
[2023-12-10 00:09] LABS: Absolute Neutrophil Ct (ANC) 8.78 x10^3/uL (1.56-6.13); BASOPHIL % 0.4 % (0.1-1.2); Basophil (Absolute #) 0.05 x10^3/uL (0.01-0.08); Eosinophil (Absolute #) 0.12 x10^3/uL (0.04-0.36); Hematocrit 36.1 % (34.1-44.9); Hemoglobin 12.2 g/dL (11.2-15.7); IMMATURE GRAN # 0.04 x10^3u/L (0.001-0.031); IMMATURE GRAN % 0.3 % (0.001-0.429); Lymphocyte (Absolute #) 2.14 x10^3/uL (1.18-3.74); Mean Cell Volume 89.8 fL (79.4-94.8); Mean Corpuscular Hemoglobin 30.3 pg (25.6-32.2); Mean Corpuscular Hgb Concent. 33.8 g/dL (32.2-35.5); Mean Platelet Volume 10.1 fL (9.4-12.3); Monocyte (Absolute #) 0.74 x10^3/uL (0.24-0.86); Monocytes % 6.2 % (4.7-12.5); Neutrophil % 74.1 % (34.0-71.1); Platelet Count 295 x10^3/uL (182-369); Red Blood Count 4.02 x10^6/uL (3.93-5.22); Red Cell Distribution Width 13.2 % (11.7-14.4); White Blood Count 11.9 x10^3/uL (3.98-10.04)
[2023-12-10 00:22] LABS: ANION GAP 16.5 MEQ/L (5-15); BILIRUBIN,TOTAL 0.6 mg/dL (0.2-1.3); Calcium 9.8 mg/dL (8.4-10.2); Creatinine 1 0.67 mg/dL (0.52-1.04); EST GLOMERULAR FILTRATION RATE 95.2 ML/MIN; INR 1.08 (0.8-3.0); PROTIME 11.7 SECONDS (9.4-12.5); Potassium 3.9 mmol/L (3.5-5.1); Total Protein 7.3 g/dL (6.3-8.2)
[2023-12-10 00:47] LABS: VBG BASE EXCESS -1.6 (-2.0-2.0); VBG CARBOXYHEMOGLOBIN 3.7 % T HGB (0.0-6.9); VBG HCO3- 19.9 meq/L (22-28); VBG HEMOGLOBIN 13.4; VBG O2 SATURATION 54.5 (95-100); VBG POTASSIUM 3.4 (3.5-5.1); VBG pH 7.51 (7.32-7.42)
[2023-12-10 00:48] LABS: TROPONIN < 0.012 ng/mL (0.000-0.033)
[2023-12-10 00:55] LABS: Appearance Clear (Clear); Bacteria None Seen /HPF (None Seen); Bilirubin Negative (Negative); Blood Negative (Negative); Epithelial Cells None Seen /HPF (None Seen); Glucose, Urine Negative (Negative); Hyaline Casts NONE SEEN /LPF (0-2); Ketones Negative (Negative); Leukocyte Esterase Trace (Negative); Nitrite Negative (Negative); Protein,Urine Dip Negative (Negative); RBC 0-2 /HPF (0-5); Urobilinogen 0.2 mg/dL (0.2); WBC 0-2 /HPF (0-5)
[2023-12-10 00:56] LABS: ADD URINE CULTURE? NO (NO)
[2023-12-10 00:59] LABS: PROCALCITONIN 0.036 ng/mL (0.030-0.080); TSH, 3RD Generation 2.238 mIU/L (0.470-4.680)
[2023-12-10 01:01] LABS: CREATININE,URINE RANDOM 16.4 MG/DL
--- NOTE | 2023-12-10 01:55 | XRAY ---
CLINICAL HISTORY: sob COMPARISON: None. TECHNIQUE: Contiguous axial CT images of the chest were acquired without administration of intravenous contrast. Coronal and sagittal reconstructions were obtained. One of the following dose reduction techniques was utilized for this exam: Automated exposure control, adjustment of the mA and/or kV according to patient size, and use of iterative reconstruction. FINDINGS: Left upper lobe lingular segment calcified nodule/granuloma measuring 11 mm. A large hiatus hernia is seen containing a large air/fluid level within measuring approximately 80 x 85 mm. Adjacent left lower lobe atelectatic changes and patchy ground glass opacities. Small partially calcified subcarial lymph node largest measuring 16 mm. minimal left pleural effusion. minimal right pleural thickening/reaction No free or encysted pleural effusion. Heart size is normal, and there is mild pericardial effusion. Mild aortic atherosclerotic calcifications. Scanned upper abdomen revealed a right renal cyst measuring 53 mm. IMPRESSION: 1. Large hiatus hernia with adjacent left lower lobe atelectatic changes. 2. Left upper lobe lingular segment calcified nodule/granuloma with partially calcified subcarinal lymph nodes likely sequel of old granulomatous infection. 3. Mild pericardial effusion. 4. Minimal left pleural effusion with minimal right pleural thickening/reaction. Electronically Signed by: Joanna Storm MD. (12/10/2023 01:50:24 EDT)
--- NOTE | 2023-12-10 02:15 | XRAY ---
CLINICAL HISTORY: abd pain COMPARISON: None. TECHNIQUE: CT of the abdomen and pelvis was performed in axial plane without intravenous contrast. Sagittal and coronal reconstruction were also obtained. One of the following dose reduction techniques was utilized for this exam: Automated exposure control, adjustment of the mA and/or kV according to patient size, and use of iterative reconstruction. FINDINGS: Left upper lobe lingular segment calcified nodule/granuloma measuring 11 mm. A large hiatus hernia is seen containing a large air/fluid level within measuring approximately 80 x 85 mm. Adjacent left lower lobe atelectatic changes. The intra-abdominal part of the stomach is moderately dilated with no signs of obstructing gastric outlet masses. Unremarkable appearing duodenum. Small Bowel and colon are non-distended with no abnormality No free air and no ascites. No free intraperitoneal air is seen. The liver is enlarged in size with no masses or intrahepatic or extrahepatic bile duct dilation on non-contrast basis. Unremarkable appearing gallbladder with no stones wall thickening or pericholecystic inflammatory changes or fluid. Unremarkable appearing pancreas. No pancreatic mass or ductal dilatation is seen. Unremarkable appearing spleen. Appendix is not visualized. The adrenal glands are normal. Right renal mid-pole cyst measuring 53mm. The left kidney appears unremarkable with no cyst masses or hydronephrosis. The ureters are normal with no stones. Mild aortoiliac atherosclerotic calcifications. Bladder is unremarkable with no stones. Uterus is unremarkable. Left pelvic phlebolith. Lumbar spondylotic changes with L5-S1 metallic cage fixation. IMPRESSION: 1. Large hiatus hernia with adjacent left lower lobe atelectatic changes. the intra-abdominal part of the stomach is moderately dilated. Advise clinical correlation. 2. Left upper lobe lingular segment calcified nodule/granuloma. 3. Right renal mid-pole cyst. 4. Mild hepatomegaly. Electronically Signed by: Joanna Storm MD. (12/10/2023 02:11:25 EDT)
[2023-12-10 03:39] LABS: ANION GAP 15.7 MEQ/L (5-15); Calcium 9.2 mg/dL (8.4-10.2); Creatinine 1 0.58 mg/dL (0.52-1.04); EST GLOMERULAR FILTRATION RATE 98.5 ML/MIN; Potassium 3.6 mmol/L (3.5-5.1)
--- NOTE | 2023-12-10 07:29 | XRAY ---
Indication: Chest pain. Comparison: November 30, 2019 Portable chest demonstrates interval enlarging very large hiatal hernia with intrathoracic stomach and subsequent left lower lobe subsegmental atelectasis. Remaining heart and lungs unremarkable again with incidental left base calcified granuloma. Bony thorax intact.
[2023-12-10] MEDS ORDERED: Zofran 4 MG/2 ML VIAL ONE (09:48)
[2023-12-10] MEDS: Zofran 4 MG/2 ML VIAL IV ONE (09:51)
[2023-12-10] MEDS ORDERED: SUBLIMAZE 100 MCG/2 ML ONE ×2 (11:41→15:01)
[2023-12-10] MEDS: SUBLIMAZE 100 MCG/2 ML IV ONE ×2 (11:45→15:02)
[2023-12-10 18:27] VITALS: O2SAT 100
[2023-12-10 19:20] VITALS: BP 126/85; PULSE 71; RESP 15
[2023-12-12 07:22] LABS: Osmolality, Urine 349 mOsmol/kg (.)
[2023-12-13 07:06] LABS: Osmolality-Se/Pl 255 mOsmol/kg (280-301)
== END 2023-12-10 19:06 | disposition short-term general hospital (02) ==
LOC: ED 23:12
DX: E87.1 Hypo-osmolality and hyponatremia (principal); E87.20 Acidosis, unspecified; R42 Dizziness and giddiness; R53.1 Weakness; C95.90 Leukemia, unspecified not having achieved remission; R74.01 Elevation of levels of liver transaminase levels; K44.9 Diaphragmatic hernia without obstruction or gangrene; R11.2 Nausea with vomiting, unspecified; R77.8 Other specified abnormalities of plasma proteins; I10 Essential (primary) hypertension; Z79.01 Long term (current) use of anticoagulants; Z79.891 Long term (current) use of opiate analgesic; Z79.899 Other long term (current) drug therapy
CPT/HCPCS: 36000; 36415; 71045; 71250; 74176; 80048; 80053; 80061; 81001; 82150; 82570; 82805; 83605; 83690; 83721; 83930; 83935; 84145; 84295; 84300; 84443; 84484; 85025; 85610; 87040; 93005; 96360; 96374; 96375; 96376; 99285; J2270; J2405; J3010

== ENCOUNTER 2024-02-12 09:01 | Day surgery (SDC) | payer MEDICARE, OTHER ==
--- NOTE | 2024-02-12 00:11 | HP ---
HISTORY AND PHYSICAL HISTORY OF PRESENT ILLNESS: A 69-year-old female who was in the hospital 1 month ago. catina Paul at the time, was in [facility] and had a CT scan, had a hiatal hernia. She has an anterior scar from disc back surgery for anterior approach in the past. She has some problems with chronic constipation. 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 Past history of hypertension, reflux, hiatal hernia, arthritis, depression. She had some atrial fibrillation in the past. She had anxiety and history of cataracts in the past. HOME MEDICATIONS: Trazodone, promethazine, omeprazole, cyclobenzaprine, nitroglycerin p.r.n., metoprolol, lomotil, isosorbide dinitrate, fluconazole. ALLERGIES: Gabapentin, penicillin, Ultram. PAST SURGICAL HISTORY: She had tonsillectomy and adenoidectomy. She had cataract surgery. She had back surgery. She had a bilateral tubal in the past. Appendectomy in the past. SOCIAL HISTORY: No smoking. No alcohol abuse. FAMILY HISTORY: Diabetes and heart disease. REVIEW OF SYSTEMS: Twelve systems reviewed. No chest pain or palpitations. Other systems negative or noncontributory as above and per preadmission questionnaire. PHYSICAL EXAMINATION: GENERAL: BMI 25.8. HEENT: Sclerae nonicteric. NECK: No JVD. CHEST: Clear to auscultation. CARDIOVASCULAR: Irregularly irregular. ABDOMEN: Soft. EXTREMITIES: No clubbing, cyanosis, or edema. NEUROLOGIC: Alert and oriented, moving extremities symmetrically. PSYCHIATRIC: Appropriate mood and affect. SKIN: Dry. IMPRESSION: History of hiatal hernia. EGD first, maybe later esophagram or upper GI study. Risks explained in detail including bleeding, infection, risk of bowel injury or perforation, risk of misdiagnosis or nondiagnosis, incomplete exam possibly requiring other studies or procedures. Otherwise continue medications for hypertension, asthma, anxiety, CML, and reflux. Will schedule outpatient EGD, possible biopsies as an outpatient.
[2024-02-12] MEDS: Lactated Ringers 1,000 ML IV SCH (09:35)
[2024-02-12] MEDS ORDERED: DIPRIVAN 200 MG/20 ML IV ONE (11:19)
[2024-02-12 11:56] VITALS: PULSE 51; RESP 16
[2024-02-12 12:06] VITALS: BP 160/64; TEMP 97.7; O2SAT 99
--- NOTE | 2024-02-13 11:33 | OP ---
SURGERY DATE/TIME: 02/12/2024 [id number] PREOPERATIVE DIAGNOSIS: Hiatal hernia and history of some reflux. POSTOPERATIVE DIAGNOSES: 1) Large hiatal hernia. 2) Minimal gastritis with some superficial erosions. 3) Distal esophagitis. PROCEDURE: Esophagogastroduodenoscopy. SURGEON: Alex Mena MD ANESTHESIA: MAC. ESTIMATED BLOOD LOSS: Minimal. INDICATIONS: Consent obtained. DESCRIPTION OF PROCEDURE AND FINDINGS: The patient was taken to the operating room. MAC anesthesia was induced after official time-out for planned procedure. Bite block positioned. The gastroscope passed down the esophagus to the GE junction through the patent pylorus to the junction of the 3rd and 4th portion of duodenum. Duodenum was unremarkable. Scope pulled back in the stomach. There was some slight gastric erythema or gastropathy and a couple of little superficial erosions. No signs of any ulcers or obvious masses or polyps. Cold biopsy taken to evaluate for H. pylori. On retroflex, the patient appeared to have a hiatal hernia where a good part of the stomach was flipping upward. The GE junction itself seemed to be fairly snug against the scope. The distal part of the esophagus had distal esophagitis. Multiple cold biopsies were taken. Particularly last centimeter or 2 seemed to be most inflamed. More proximal esophagus unremarkable. There did not appear to be any obvious gross mass with just a fair amount of inflammation. Cold biopsies taken. Good hemostasis noted. The scope was withdrawn. The GE junction seemed to be about 35 to 36 cm. The scope was withdrawn. The patient tolerated the procedure well. Findings discussed with the in the waiting area. Bring her back to the office to discuss surgical repair.
== END 2024-02-12 12:08 | disposition home or self-care (01) ==
LOC: SDC 09:01
PROVIDERS: ATTEND Surgery
DX: K29.70 Gastritis, unspecified, without bleeding (principal); K44.9 Diaphragmatic hernia without obstruction or gangrene; Z87.19 Personal history of other diseases of the digestive system; K20.90 Esophagitis, unspecified without bleeding
CPT/HCPCS: J2704